=== PATIENT | male | born 1960 | race Caucasian/White ===

== ENCOUNTER 2016-09-11 10:51 | Inpatient (IN) ==
[2016-09-11] MEDS ORDERED: NITROGLYCERIN SL 0.4 MG TABLET SL PRN (11:04)
[2016-09-11] MEDS ORDERED: ENOXAPARIN 100 MG/ML SYRINGE SUBCUT STA (11:04)
[2016-09-11] MEDS ORDERED: ASPIRIN 325 MG TABLET PO STA (11:04)
[2016-09-11] MEDS ORDERED: ENOXAPARIN 60 MG/0.6 ML SYRINGE ONE (11:07)
[2016-09-11] MEDS ORDERED: ASPIRIN 325 MG TABLET ONE (11:07)
--- NOTE | 2016-09-11 11:35 | XRay Report ---
XR chest 1V portable Indication: Chest pain Comparison: None Technique: Single frontal view of the chest. Findings: Heart size within normal limits. Mild patchy opacification within the upper/lateral right lung suspicious for early consolidative process such as pneumonia. Visualized osseous and surrounding soft tissue structures demonstrate no acute abnormality. IMPRESSION: Mild patchy opacification within the upper/lateral right lung suspicious for early consolidative process such as pneumonia. PROCEDURE INTERPRETED AT [facility] DEPARTMENT OF RADIOLOGY Final Report Signed by: Dr Oswald Jaeger
[2016-09-11] MEDS ORDERED: NITROGLYCERIN 2% OINT 1 INCH/GM PACK TOP ONE (11:37)
[2016-09-11 11:43] LABS: Basophils # 0.1 10*3/uL (0.0-0.2); Basophils % 0.8 % (0.0-0.8); Eosinophils # 0.2 10*3/uL (0.0-0.87); Eosinophils % 2.2 % (0.00-10.9); Hematocrit 45.2 VOL% (42.0-52.0); Hemoglobin 15.7 GM/DL (14.0-18.0); Immature Granulocytes % 0.3 %; Immature Granulocytes Absolute 0.03 #; Lymphocytes # 1.9 10*3/uL (1.4-4.0); Lymphocytes % 20.5 % (21.2-54.2); Mean Corpuscular HGB Conc 34.7 GM/DL (32-36); Mean Corpuscular Hemoglobin 31 PG (27-34); Mean Corpuscular Volume 88.6 FL (87-102); Monocytes # 0.6 10*3/uL (0.11-0.8); Monocytes % 6.4 % (1.7-12.7); Neutrophils # 6.5 10*3/uL (1.4-7.4); Neutrophils % 69.8 % (38.7-73.9); Platelet Count 329 T/CUMM (130-400); Red Cell Distribution Width 12.9 % (9.3-17.3); White Blood Count 9.3 T/CUMM (4-12)
[2016-09-11] MEDS ORDERED: NITROGLYCERIN 2% OINT 1 INCH/GM PACK TOP STA (11:53)
[2016-09-11] MEDS ORDERED: MAGNESIUM SULF RIDER 4 GM in PREMIX 1 EACH IV PRN (11:55)
[2016-09-11] MEDS ORDERED: ZALEPLON 5 MG CAPSULE PO PRN (11:55)
[2016-09-11] MEDS ORDERED: MAGNESIUM SULF RIDER 2 GM in PREMIX 1 EACH IV PRN ×2 (11:55→12:00)
[2016-09-11] MEDS ORDERED: MORPHINE 2 MG/1 ML SYRINGE IV PRN (11:55)
[2016-09-11] MEDS ORDERED: ACETAMINOPHEN 325 MG TABLET PO PRN (11:55)
[2016-09-11] MEDS ORDERED: DOCUSATE SODIUM 100 MG CAPSULE PO PRN (11:55)
[2016-09-11] MEDS ORDERED: ONDANSETRON 4 MG/2 ML VIAL IV PRN (11:55)
[2016-09-11] MEDS ORDERED: DIAZEPAM 5 MG TABLET PO ONE (12:00)
[2016-09-11] MEDS ORDERED: POTASSIUM CHLORIDE RIDER 10 MEQ in PREMIX 1 EACH IV PRN (12:00)
[2016-09-11] MEDS ORDERED: diphenhydrAMINE CAP 25 MG CAPSULE PO ONE (12:00)
[2016-09-11] MEDS ORDERED: SODIUM CHLORIDE 0.45% 1,000 ML IV SCH (12:00)
[2016-09-11] MEDS ORDERED: LIDOCAINE 1%/EPI INJ 20 ML VIAL ONE (12:06)
[2016-09-11 12:13] LABS: Albumin 4.1 G/DL (3.4-5.0); Bilirubin,Total 0.6 MG/DL (0.2-1.0); Calcium 9.4 MG/DL (8.5-10.1); Magnesium 2.3 MG/DL (1.8-2.4); Osmolality,Calculated 282.3 MOS/KG (273-304); Potassium 4.3 MMOL/L (3.5-5.1); Total Protein 7.2 G/DL (6.4-8.3)
[2016-09-11] MEDS ORDERED: MIDAZOLAM 2 MG/2 ML VIAL ONE (12:18)
[2016-09-11] MEDS ORDERED: fentaNYL 100 MCG/2 ML VIAL ONE (12:19)
--- NOTE | 2016-09-11 12:21 | Cardiology History & Physical ---
Assessment and Plan - Time spent with patient Time spent with patient: Greater than 30 minutes (1) Unstable angina Status: Acute Assessment and plan: SEE PLAN OF CARE LISTED BELOW Current Visit: Yes (2) Hypotension Status: Acute Assessment and plan: SEE PLAN OF CARE LISTED BELOW Current Visit: Yes (3) CAP (community acquired pneumonia) Status: Acute Assessment and plan: SEE PLAN OF CARE LISTED BELOW Current Visit: Yes (4) Tobacco abuse Status: Chronic Assessment and plan: SEE PLAN OF CARE LISTED BELOW Current Visit: Yes History of Present Illness Chief complaint: Chest pain, left shoulder pain, jaw pain, hypotension History of present illness: 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 WALTERS PATIENT IS BEING SEEN IN THE ER Mr. Haider, 56WM, has never been followed by cardiology. Risk factors include: Heavy tobaccoism. Patient arrived to the emergency department at [facility] this morning after experiencing unrelenting left-sided chest pain which radiated to the left jaw and down the left arm. It is associated with diaphoresis, shortness of breath. He rates the discomfort as a 7 on a scale of 1-10, chest pain is currently a 5. It is not reproducible with movement, palpation or deep breath. Although the discomfort was previously occurring primarily with exertion, it is now occurring with exertion and at rest. He can identify no alleviating factors. Chest discomfort is described as squeezing sensation and a grabbing sensation. The discomfort has been occurring for the past 4-6 weeks. Initially, it was occurring with exertion, relieved with rest. He was having this several times a week. This morning, as he awakened and got out of bed, he began to experience this discomfort without relief. On arrival to the emergency department, he was hypotensive with a systolic blood pressure noted to be 70s. He was diaphoretic and continued to have chest pain. He was given a fluid bolus and systolic blood pressure improved to 100. EKG revealed no STEMI but possible hyperacute T waves. He has been given aspirin 325 mg and Lovenox, therapeutic dose. Blood pressure will not allow for introduction of beta-blockade and nitroglycerin paste has been held at this time. Cardiac biomarkers, labs have not yet returned. No obvious aneurysmal or dissecting symptoms are noted. Carotid, radial, femoral and pedal pulses 2-3+ bilaterally. No abdominal masses, or bruits noted. Of note, patient's chest x-ray does reveal probable pneumonia. Patient has no prior history of anemia, renal insufficiency or allergies. I have discussed this patient's condition with Dr. Walters. Dr. Walters will evaluate patient and make a decision regarding catheterization at this time. He is being prepped for heart cath, has not eaten since last evening. ASSESSMENT/PLAN: 1. UNSTABLE ANGINA - See above 2. HYPOTENSION - See above 3. POSSIBLE CAP - Will treat accordingly 4. TOBACCOISM - We discussed the merits of tobacco cessation briefly during ER but will further address prior to discharge. Home Medications Medication Instructions Recorded Confirmed Type No Known Home Medications [No 09/11/16 09/11/16 History Known Home Medications] Allergies Allergy/AdvReac Type Severity Reaction Status Date / Time No Known Allergies Allergy Verified 09/11/16 10:53 Review of systems: REVIEW OF SYSTEMS: See HPI - Constitutional Constitutional: Present: Fatigue. Absent: syncope, anorexia, night sweats - EENT Eyes: Absent: blurry vision, loss of vision, diplopia Ears: Absent: decreased hearing, ear pain, ear discharge - Cardiovascular Cardiovascular: Present: chest pain with exertion, chest pain at rest, dyspnea on exertion. Denies edema, palpitations. Absent: chest pain with deep breath, claudication - Respiratory Respiratory: Present: FITZPATRICK, denies cough. Absent: wheezing, hemoptysis, change in phlegm color - Gastrointestinal Gastrointestinal: Denies: constipation. Absent: abdominal pain, hematemesis, hematochezia, melena, change in bowel habits, nausea - Genitourinary Genitourinary: Absent: difficulty urinating, dysuria, urinary hesitancy, flank pain - Musculoskeletal Musculoskeletal: Present: back pain Absent: joint swelling, muscle cramps, muscle weakness - Neurological Neurological: Present: normal gait without frequent falls. Absent: dizziness, hemiparesis - Psychiatric Psychiatric: Absent: anxiety, depression, difficulty concentrating - Endocrine Endocrine: Absent: cold intolerance, heat intolerance, polyuria, polyphagia, polydipsia - Hematologic/Lymphatic Hematologic/Lymphatic: Present: easy bruising. Absent: easy bleeding, easy bruisability -Integumentary Integumentary: Absent: lesions, rashes, skin breakdown Medical,Surgical,& Family Hx - Medical History Cardio: No history of: Aneurysm, CAD, Hypertension, RI, Cardiovascular Problems Neurology: No history of: Cerebrovascular Accident, Seizures, TIA Endocrine: No history of: Diabetes Mellitus (IDDM), Diabetes Mellitus (NIDDM), Dyslipidemia Respiratory: No history of: Obstructive Sleep Apnea, Pulmonary Embolism, Lung Cancer Gastrointestinal: No history of: Gastrointestinal Bleed, Liver Problems, Gastrointestinal Cancer, GI Problems Musculoskeletal: History of: Back/Neck Problems Hematology: No history of: Anemia, Bleeding Problems - Surgical History Orthopedic Surgeries: Surgical HX of;: Spinal Surgery (fusion lumbar) - Social History Smoking Status: Current every day smoker Have you smoked in the last 12 months: Yes Time spent discussing smoking cessation with patient: 3 to 10 minutes Frequency of Alcohol Use: None Type of Drug Use: None Marital Status: Single Lives With:: Alone Functional capacity: independent ambulation Cardiology Physical Exam - Constitutional Vitals: Vital Signs Temp Pulse Resp BP Pulse Ox 96.4 F L 89 17 100/46 100 09/11/16 10:58 09/11/16 11:25 09/11/16 11:25 09/11/16 11:25 09/11/16 11:25 Intake and Output 09/10/16 09/11/16 09/11/16 23:59 07:59 15:59 Other: Weight 62.142 kg Patient Weight 09/11/16 23:59 Weight 62.142 kg Exam: General: [Thin male, slightly diaphoretic, cooperative and pleasant. ] HEENT: [PERRL, normocephalic, atraumatic. Mucous membranes moist. No jaundice noted. Conjunctiva moist and clear, sclerae anicteric. Poor dentition noted] Neck: No JVD/HJR, no thyromegaly or lymphadenopathy noted. No carotid bruit appreciated. 2 + carotid pulses noted bilaterally Cardiac: [Regular rate and rhythm.] [No obvious murmur rub or gallop.] Lungs: [Clear to auscultation without accessory muscle use to assist the respiratory pattern.] Oxygen in use via nasal cannula Abdomen: Soft, bowel sounds normoactive. Nontender and nondistended. No abdominal bruit or thrill noted. No masses noted. Musculoskeletal: No fluid collection. No decreased range of motion is noted. Extremities: No clubbing, cyanosis noted. [ No edema noted.] Radial, femoral and pedal pulses 2+ bilaterally. Capillary refill less than 3 seconds. Skin: No unusual lesions or rashes. No skin breakdown appreciated. Neuro: Awake, alert and oriented 3. Moves all extremities well without hemiparesis or paralysis. No essential tremor is appreciated. Result/EKG - Labs CBC & BMP: 09/11/16 11:26 09/11/16 11:26 Lab Results: I have reviewed the past 24 hour labs Labs: Laboratory Results - last 24 hr 09/11/16 11:26 WBC 9.3 RBC 5.10 Hgb 15.7 Hct 45.2 MCV 88.6 MCH 31 MCHC 34.7 RDW 12.9 Plt Count 329 MPV 9.0 L Neut % (Auto) 69.8 Lymph % (Auto) 20.5 L Garland % (Auto) 6.4 Eos % (Auto) 2.2 Baso % (Auto) 0.8 Neut # (Auto) 6.5 Lymph # (Auto) 1.9 Garland # (Auto) 0.6 Eos # (Auto) 0.2 Baso # (Auto) 0.1 Immature Gran % 0.3 Nucleated RBC % 0.0 Immature Gran # 0.03 Nucleated RBCs # 0.00 - Diagnostic Findings Procedure: Chest x-ray: report reviewed by me (Possible pneumonia noted) - EKG EKG results: interpreted by me EKG shows: sinus rhythm Quality Measures - VTE Contraindication to Pharmacological VTE Prophylaxis: Already on Theraputic Agent , No Prophylaxis Needed
[2016-09-11] MEDS ORDERED: ENOXAPARIN 30 MG/0.3 ML SYRINGE ONE (12:34)
[2016-09-11] MEDS ORDERED: HYDROmorphone 2 MG/1 ML VIAL IV ONE (13:05)
[2016-09-11] MEDS ORDERED: HYDROmorphone 2 MG/1 ML VIAL ONE (13:07)
--- NOTE | 2016-09-11 13:18 | Cardiac Catheterization ---
Date of Procedure:: 09/11/16 Pre-op Diagnosis: Patient with chest pain hypotension earlier EKG is equivocal he is for diagnostic evaluation intervention if indicated Post-op diagnosis: same Procedure: 56-year-old man with a history of substernal discomfort suspicious for angina and equivocal EKG changes for diagnostic evaluation intervention if indicated Procedures performed: Left heart catheterization Coronary arteriography Left ventriculography Patient had a femoral sheath angiography Mynx closure femoral arteriotomy site After obtaining informed consent the patient was brought to the catheterization lab where the [right] groin was prepped and draped in the usual sterile manner. After intravenous sedation and local anesthesia a needle stick was made to the right femoral artery and a [6 Swedish sheath] was positioned without difficulty. A left heart catheterization was undertaken using first a Michelle left diagnostic catheter. The catheter was advanced under fluoroscopy over a guidewire and positioned with its tip in the ostium of the left main coronary artery. Multiple angiograms were obtained of the left coronary artery in multiple views. After adequate angiogram to left coronary obtain this catheter was withdrawn and an AMRM right coronary catheter was advanced over a guidewire under fluoroscopic control where angiography of the right coronary artery was undertaken in multiple views. After adequate angiograms of the right coronary artery were obtained this catheter was withdrawn. A pigtail ventriculographic catheter was advanced over a guidewire under fluoroscopic control to the ascending aorta where it was advanced across the aortic valve and intraventricular hemodynamics were measured. A ventriculogram was obtained in the CYR projection and afterward a pullback was obtained from the ventricle to the aorta under hemodynamic monitoring and removed. At this point the patient underwent right femoral sheath angiography which demonstrated anatomy appropriate for Mynx closure. Patient was uncooperative and developed a golf ball sized hematoma. Minx was placed and this was performed without difficulty. Patient continued bleeding. He underwent hemostasis using direct pressure for 15 minutes. Groin was stable at end procedure. The patient then was transferred back to the [facility]ra having suffered no significant immediate complications. Hemodynamics: Please see the accompanying data sheet Coronary arteriography: Left coronary artery: The left main coronary artery is well-developed and free of significant obstructing lesions. The circumflex coronary is a large nondominant vessel that possesses no significant lesions through its course. The branches of the circumflex likewise are free of significant obstructing lesions. There are several areas of 30-40% stenosis noted. No significant stenosis can be identified. The left anterior descending coronary artery is a large vessel that extends around the apex of the ventricle. The LAD possesses no significant lesions throughout its course. There are several areas of 30-40% stenosis but no significant flow-limiting disease can be noted. Right coronary artery: Right coronary is a large dominant vessel possesses an area of probably 40-50% stenosis in its midportion. The PDA has a mid segment lesion probably measuring 90% stenotic. The distal vessel was very small. There is SUDHA III flow down this vessel. Left ventriculography: After injection of contrast left ventricle is noted normal size with normal contractility. Mitral and aortic structures are noted to be free of significant abnormality by ventriculography. Right femoral sheath angiography: After injection of contrast in the right femoral arterial sheath it is noted be of normal caliber and enters above the bifurcation. The distal iliac, common femoral and bifurcation appear to be free of significant obstructing lesions based on this limited angiographic study. Conclusions: Moderate disease of the mid right and mid circumflex with significant disease of his mid to distal PDA which I do not think is causing any acute event. Normal left ventricular size and function. Normal end-diastolic pressures at rest Mynx closure right femoral arteriotomy site Discussion recommendations the patient presents with chest discomfort. EKG is equivocal. I do not think that this is a acute coronary syndrome. He does have mid PDA stenosis which could be treated percutaneously electively at some later point. Because of the patient's significant bleeding and hematoma I am going to stop and pull sheaths and hold pressure. He will be watched closely in the CCU setting. Surgeon / Physician: Shabbir Walters Estimated blood loss: minimal Specimens: none sent Condition: stable - Medications / Follow-up
[2016-09-11 13:30] LABS: Risk Ratio 2.48; VLDL CHOLESTEROL 19.8 MG/DL
[2016-09-11] MEDS: ALBUTEROL 1.25 MG/3 ML NEB RESP TX SCH ×2 (14:40→19:30)
--- NOTE | 2016-09-11 14:55 | Event Note ---
Patient underwent cardiac catheterization for chest pain, shortness of breath. No significant coronary disease noted. Chest x-ray does reveal a pneumonia. Dr. Walters would like pulmonary to be consulted. I will go ahead and start Levaquin and pulmonary toilet.
[2016-09-11] MEDS ORDERED: LEVOFLOXACIN INJ 500 MG in PREMIX 1 EACH IV SCH (15:00)
--- NOTE | 2016-09-11 15:42 | Pulmonology Consult Note ---
Assessment and Plan (1) COPD (chronic obstructive pulmonary disease) Status: Acute Assessment and plan: The patient likely has some COPD although he does not complain of a lot of symptoms. Will check PFTs tomorrow. Current Visit: Yes (2) Unstable angina Status: Acute Assessment and plan: The patient had a cardiac catheterization and has moderate coronary artery disease. He will continue with medical treatment. Current Visit: Yes (3) CAP (community acquired pneumonia) Status: Acute Assessment and plan: I doubt this area in question is pneumonia. Will have to follow this area. Current Visit: Yes (4) Tobacco abuse Status: Chronic Assessment and plan: He certainly needs to quit smoking. Current Visit: Yes History of Present Illness Chief complaint: Chest pain History of present illness: Mr. Haider is a 56 year old white male has a long history of cigarette smoking came in with chest pain. He states for the past month or so he has had some intermittent chest pain and occasional shortness of breath. Earlier he had severe pain and came in and had a cardiac catheterization. He has mild coronary artery disease. He says he had a similar event 10 or12 years ago but did not agree to a cardiac catheterization. He says he never really takes any medicine. He denies having any trouble with his breathing before. He says he is not coughing or producing any sputum. He has never used any inhalers. He is really not having any other symptoms now. Home Medications Medication Instructions Recorded Confirmed Type No Known Home Medications [No 09/11/16 09/11/16 History Known Home Medications] Allergies Allergy/AdvReac Type Severity Reaction Status Date / Time No Known Allergies Allergy Verified 09/11/16 10:53 - Constitutional Constitutional: Present: fatigue. Absent: chills, fever(s), night sweats, weight loss - EENT Eyes: Absent: blurry vision, loss of vision Ears: Absent: decreased hearing Nose, mouth and throat: Absent: dysphagia, hoarseness, sinus pressure - Cardiovascular Cardiovascular: Present: chest pain with activity, dyspnea on exertion. Absent : edema, orthopnea, palpitations, PND - Respiratory Respiratory: Present: dyspnea on exertion. Absent: cough, hemoptysis, wheezing , change in phlegm color - Gastrointestinal Gastrointestinal: Absent: abdominal pain, change in bowel habits, dysphagia, nausea, vomiting - Genitourinary Genitourinary: Absent: difficulty urinating, dysuria, hematuria, urinary frequency - Musculoskeletal Musculoskeletal: Present: back pain. Absent: arthralgias, muscle weakness - Neurological Neurological: Absent: abnormal speech, focal weakness, frequent falls, paresthesias - Psychiatric Psychiatric: Absent: anxiety, depression Exam (Pulmon) H&P - Constitutional Vitals: Period Temp Pulse Resp BP Sys/Jaffe Pulse Ox Last 24 Hr 96.4 F-97.8 F 82-89 17-24 69-134/46-83 100-100 General appearance: normal weight (He is a thin young middle-aged man that looks comfortable at rest.), no acute distress - Head Head exam: Present: normal inspection, normocephalic - Eye Eye exam: Present: EOMI. Absent: scleral icterus Pupils: Present: MELANY - ENT ENT exam: Present: other (Poor dentition) - Neck Neck exam: Present: normal inspection. Absent: lymphadenopathy, thyromegaly - Respiratory Respiratory exam: Absent: clear to auscultation bilaterally, accessory muscle use, wheezes - Cardiovascular Cardiovascular exam: Present: regular rate and rhythm. Absent: gallop, JVD, systolic murmur - GI/Abdominal GI/Abdominal exam: Present: normal bowel sounds, soft. Absent: distended, organomegaly, tenderness - Extremities Exam Extremities exam: Absent: calf tenderness, edema - Neurological Exam Neurological exam: Present: alert, oriented X3, CN II-XII intact - Psychiatric Psychiatric exam: Present: normal affect - Skin Skin exam: Present: warm, dry Medical,Surgical,& Family Hx - Medical History Cardio: No history of: Aneurysm, CAD, Hypertension, [place], Cardiovascular Problems Neurology: No history of: Cerebrovascular Accident, Seizures, TIA Endocrine: No history of: Diabetes Mellitus (IDDM), Diabetes Mellitus (NIDDM), Dyslipidemia Respiratory: No history of: Obstructive Sleep Apnea, Pulmonary Embolism, Lung Cancer Gastrointestinal: No history of: Gastrointestinal Bleed, Liver Problems, Gastrointestinal Cancer, GI Problems Musculoskeletal: History of: Back/Neck Problems Hematology: No history of: Anemia, Bleeding Problems - Surgical History Orthopedic Surgeries: Surgical HX of;: Spinal Surgery (fusion lumbar) - Social History Smoking Status: Current every day smoker Frequency of Alcohol Use: None Type of Drug Use: None Results - Labs CBC & BMP: 09/11/16 11:26 09/11/16 11:26 - Diagnostic Findings Procedure: Chest x-ray: image reviewed by me, report reviewed by me (Chest x- ray suggests some COPD changes. There is a small area of consolidation in the right apex medially. Doubt this is pneumonia. We will try to compare to old films.) Quality Measures - VTE Contraindication to Pharmacological VTE Prophylaxis: Already on Theraputic Agent , No Prophylaxis Needed Specialty Discharge - Follow Up or Referrals
[2016-09-11 16:00] LABS: Troponin I Only < 0.015 NG/ML (0.00-0.045)
[2016-09-11 16:46] LABS: Basophils % 0.5 % (0.0-0.8); Eosinophils # 0.1 10*3/uL (0.0-0.87); Hematocrit 38.7 VOL% (42.0-52.0); Hemoglobin 13.2 GM/DL (14.0-18.0); Immature Granulocytes % 0.4 %; Immature Granulocytes Absolute 0.03 #; Lymphocytes # 2.1 10*3/uL (1.4-4.0); Lymphocytes % 27.4 % (21.2-54.2); Mean Corpuscular HGB Conc 34.1 GM/DL (32-36); Mean Corpuscular Hemoglobin 31 PG (27-34); Mean Corpuscular Volume 89.8 FL (87-102); Monocytes # 0.4 10*3/uL (0.11-0.8); Monocytes % 5.3 % (1.7-12.7); Neutrophils % 65.4 % (38.7-73.9); Platelet Count 277 T/CUMM (130-400); Red Blood Count 4.31 MC/CUMM (3.8-5.5); Red Cell Distribution Width 13.1 % (9.3-17.3); White Blood Count 7.7 T/CUMM (4-12)
--- NOTE | 2016-09-11 17:57 | Event Note ---
Post cath, patient is awake alert and oriented 3. He is right groin is stable. Originally, patient was having bleeding issues and hematoma immediately post cath but this seems to have resolved. Vital signs are stable.
[2016-09-11 20:31] LABS: Troponin I Only < 0.015 NG/ML (0.00-0.045)
[2016-09-11] MEDS: ATORVASTATIN 40 MG TABLET PO SCH (20:58)
[2016-09-11] MEDS: METOPROLOL TARTRATE 50 MG TABLET PO SCH (20:58)
[2016-09-12] MEDS: ALBUTEROL 1.25 MG/3 ML NEB RESP TX SCH ×7 (00:22→23:35)
--- NOTE | 2016-09-12 04:44 | EKG Report ---
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
--- NOTE | 2016-09-12 04:44 | EKG Report ---
Stationary ECG Study [facility] Test Date: 09/11/2016 2:38:17 PM Pat Name: ZULEYMA SPANGLER Department: Room: Gender: M Subassembly Supervisor: : 1960 Requested by: Jesse Quinn Order Number: [id number] Reading MD: PAKO ALEMAN Intervals [place] Rate: 61 P: 68 [place]: 140 QRS: 49 QRSD: 90 T: 65 QT: 433 QTc: 436 Interpretive Statements SINUS RHYTHM INTERPRETATION BASED ON A DEFAULT AGE OF 40 YEARS Electronically Signed On 09-11-16 17:11:38 CDT by PAKO ALEMAN [email or web address]
[2016-09-12 05:53] LABS: Basophils # 0.1 10*3/uL (0.0-0.2); Basophils % 0.7 % (0.0-0.8); Eosinophils # 0.3 10*3/uL (0.0-0.87); Eosinophils % 3.6 % (0.00-10.9); Hematocrit 38.5 VOL% (42.0-52.0); Immature Granulocytes % 0.4 %; Immature Granulocytes Absolute 0.03 #; Lymphocytes # 3.2 10*3/uL (1.4-4.0); Lymphocytes % 38.5 % (21.2-54.2); Mean Corpuscular HGB Conc 33.8 GM/DL (32-36); Mean Corpuscular Hemoglobin 31 PG (27-34); Mean Corpuscular Volume 90.8 FL (87-102); Mean Platelet Volume 8.7 FL (9.6-12.0); Monocytes # 0.6 10*3/uL (0.11-0.8); Neutrophils # 4.2 10*3/uL (1.4-7.4); Neutrophils % 49.8 % (38.7-73.9); Platelet Count 282 T/CUMM (130-400); Red Blood Count 4.24 MC/CUMM (3.8-5.5); Red Cell Distribution Width 13.2 % (9.3-17.3); White Blood Count 8.4 T/CUMM (4-12)
[2016-09-12 06:26] LABS: Calcium 8.7 MG/DL (8.5-10.1); Magnesium 2.1 MG/DL (1.8-2.4); Osmolality,Calculated 288.8 MOS/KG (273-304); Potassium 3.9 MMOL/L (3.5-5.1)
[2016-09-12 06:36] LABS: Alanine Aminotransferase 22 U/L (16-61); Albumin 2.9 G/DL (3.4-5.0); Alkaline Phosphatase 74 U/L (45-117); Aspartate Amino Transferase 18 U/L (0-37); Bilirubin,Total < 0.39 MG/DL (0.2-1.0); Blood Urea Nitrogen 20 MG/DL (7-18); Calcium 8.5 MG/DL (8.5-10.1); Glucose 110 MG/DL (74-106); Osmolality,Calculated 286.1 MOS/KG (273-304); Potassium 3.8 MMOL/L (3.5-5.1); Sodium 142 MMOL/L (136-145); Total Protein 5.4 G/DL (6.4-8.3); Troponin I Only < 0.015 NG/ML (0.00-0.045)
--- NOTE | 2016-09-12 07:27 | EKG Report ---
Stationary ECG Study 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
--- NOTE | 2016-09-12 08:20 | Pulmonology Progress Note ---
Pulmonary - PN: Subj Interval history: Patient is a 56-year-old white male that is a smoker and came in with chest pain. He had a cardiac catheterization yesterday and has moderate coronary artery disease. He is going to continue with medical management. There was a question of an infiltrate in his right apex. He is not having any increased cough or chest discomfort. He is not short of breath now. His chest x-ray today looks better and I do not see an infiltrate. He will get PFTs today. He certainly needs to quit smoking. Exam (Progress Note) - Constitutional Vitals: Period Temp Pulse Resp BP Sys/Jaffe Pulse Ox Last 24 Hr 96.4 F-98.2 F 58-89 12-24 69-134/46-85 94-100 Exam: General appearance: normal weight (He is a thin young middle-aged man that looks comfortable at rest. He is not short of breath.) - Head Head exam: Present: normal inspection, normocephalic - Eye Eye exam: Present: EOMI. Absent: scleral icterus Pupils: Present: MELANY - ENT ENT exam: Present: other (Poor dentition) - Neck Neck exam: Present: normal inspection. Absent: lymphadenopathy, thyromegaly - Respiratory Respiratory exam: The patient has good breath sounds bilaterally without any definite wheezing. - Cardiovascular Cardiovascular exam: Present: regular rate and rhythm. Absent: gallop, JVD, systolic murmur - GI/Abdominal GI/Abdominal exam: Present: normal bowel sounds, soft. Absent: distended, organomegaly, tenderness - Extremities Exam Extremities exam: Absent: calf tenderness, edema - Neurological Exam Neurological exam: Present: alert, oriented X3, CN II-XII intact - Psychiatric Psychiatric exam: Present: normal affect - Skin Skin exam: Present: warm, dry Results - Labs CBC & BMP: 09/12/16 05:41 09/12/16 05:41 - Diagnostic Findings Procedure: Chest x-ray: image reviewed by me, report reviewed by me (Chest x- ray suggest COPD changes but no definite infiltrate.) Assessment and Plan (1) COPD (chronic obstructive pulmonary disease) Status: Acute Assessment and plan: The patient likely has some COPD although he does not complain of a lot of symptoms. Will check PFTs. He probably needs a bronchodilator. He will probably go home later today. Current Visit: Yes (2) Unstable angina Status: Acute Assessment and plan: The patient had a cardiac catheterization and has moderate coronary artery disease. He will continue with medical treatment. Current Visit: Yes (3) CAP (community acquired pneumonia) Status: Acute Assessment and plan: I doubt this area in question is pneumonia. His chest x-ray looks unremarkable to me. Current Visit: Yes (4) Tobacco abuse Status: Chronic Assessment and plan: He certainly needs to quit smoking. Current Visit: Yes Specialty Discharge - Follow Up or Referrals
--- NOTE | 2016-09-12 09:34 | Discharge Summary ---
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 Haider, 56WM, had never been followed by cardiology. Risk factors include: Heavy tobaccoism (80 pack years). Patient arrived to the emergency department of [facility] September 11, 2016 after experiencing unrelenting left-sided chest pain concerning for angina. He underwent urgent left heart catheterization due to unrelenting pain. Heart catheterization, performed by Dr. Walters, revealed the following findings: Conclusions: Moderate disease of the mid right and mid circumflex with significant disease of his mid to distal PDA which I do not think is causing any acute event. Normal left ventricular size and function. Normal end-diastolic pressures at rest Mynx closure right femoral arteriotomy site Discussion recommendations: Patient presents with chest discomfort. EKG is equivocal. He does have mid PDA stenosis which could be treated percutaneously electively at some later point. Because of the patient's significant bleeding and hematoma I am going to stop and pull sheaths and hold pressure. He will be watched closely in the CCU setting. Patient was monitored closely in the CCU. He developed a right groin pseudoaneurysm postoperatively as it was difficult for him to remain still. He thrashed about for several hours. September 13, 2016, Dr. Menezes performed thrombin injection of the right groin pseudoaneurysm. Post procedure arterial duplex revealed successful thrombosis. He tolerated this procedure well without complication. Labs were stable overnight. He has been ambulating this morning without difficulty. Patient was treated with Levaquin for possible community- acquired pneumonia. He is anxious for discharge and he is being discharged home today in stable condition. He will be given a 1-2 week follow-up appoint with Dr. Walters. ASSESSMENT/PLAN: 1. CHEST PAIN - see above. 2. HYPOTENSION - resolved. BP usually runs low. Beta-blockade has now been incorporated. Tolerating without problems. 3. POSSIBLE CAP - Levaquin. 4. TOBACCOISM - We discussed the merits of tobacco cessation for greater than 10 minutes today. He tells me he will no longer use tobacco 5. SUSPECTED COPD - Dr. Rodney has ordered PFTs. 6. PSEUDOANEURYSM - now stable. DISCHARGE MEDICATIONS: Aspirin 81 mg orally daily Metoprolol tartrate 50mg orally twice daily Atorvastatin 80 mg orally each evening Levaquin 500 mg orally daily 2 days Protonix 40mg orally daily - Time spent with patient Time with patient DS: Greater than 30 minutes Time spent discussing smoking cessation with patient: more than 10 minutes Diagnosis - Discharge Diagnosis (1) Unstable angina Status: Resolved (2) Hypotension Status: Resolved (3) CAP (community acquired pneumonia) Status: Acute (4) Tobacco abuse Status: Chronic Specialty Discharge - Follow Up or Referrals Follow up with: Shabbir Walters MD [Physician] - 2 Weeks Discharge Plan - Discharge Data Disposition: Disch To Home/Self Care Condition at Discharge: Stable Discharge Diet: heart healthy Activity: other (Post cath expectations) Hygiene: other (Post cath expectations) Weight Bearing at Discharge: other (Post cath expectations) Driving: other (Post cath expectations) Contact your physician if you experience:: fever over 101, Difficulty voiding, Redness or swelling, Nausea/Vomiting, Shortness of breath, Bleeding, pain uncontrolled by pain medications - Discharge Medications New Atorvastatin [Lipitor] 80 mg PO BEDTIME #30 tablet Levofloxacin Tab [Levaquin Tab] 500 mg PO Q24H #5 tablet Metoprolol Tartrate Tab [Lopressor Tab] 50 mg PO BID #60 tablet Pantoprazole Tab [Protonix Tab] 40 mg PO DAILY #30 tablet Aspirin EC Tab 81 mg PO DAILY #30 tablet - Follow Up or Referral Follow Up: Shabbir Walters MD [Physician] - 2 Weeks - Forms/Instructions Instructions: Coronary Artery Disease (GEN), Left Heart Catheterization (DC), How to Stop Smoking (GEN), Heart Healthy Diet (GEN), Cigarette Smoking and Your Health (GEN) Additional Discharge Instructions: Please cancel appointment with Dr. Rodney. WIll not need at this time. Exam - Constitutional Vitals: Period Temp Pulse Resp BP Sys/Jaffe Pulse Ox Last 24 Hr 96.4 F-98.2 F 58-89 12-24 69-134/46-85 94-100 Exam: General: [Appears well with no apparent distress.] [Pleasant and cooperative. ] [Appears comfortable.] HEENT: [PERRL, normocephalic, atraumatic. Mucous membranes moist. No jaundice noted. Conjunctiva moist and clear, sclerae anicteric] Neck: No JVD/HJR, no thyromegaly or lymphadenopathy noted. No carotid bruit appreciated Cardiac: [Regular rate and rhythm.] [No murmur rub or gallop.] Lungs: [Clear to auscultation without accessory muscle use to assist the respiratory pattern.] Not requiring oxygen Abdomen: Soft, bowel sounds normoactive. Nontender and nondistended. No abdominal bruit or thrill noted. No masses noted. Musculoskeletal: No fluid collection. Decreased range of motion is noted. Extremities: Right groin with moderate amount of ecchymosis. No bruit. [ No edema noted.] Upper extremity pulses 2+. Lower extremity pulses 1+. Capillary refill less than 3 seconds. Skin: No unusual lesions or rashes other than bruising of the right groin. No skin breakdown appreciated. Neuro: Awake, alert and oriented 3. Moves all extremities well without hemiparesis or paralysis. No essential tremor is appreciated. Discharge Results Procedures and tests throughout hospitalization: Pending Orders 09/11/16 16:33 Blood Culture Routine 09/12/16 04:00 XR chest 2V IN AM Labs on day of discharge: Labs from last 24 hours 09/12/16 09/12/16 09/12/16 05:41 05:41 05:41 WBC 8.4 RBC 4.24 Hgb 13.0 L Hct 38.5 L MCV 90.8 MCH 31 MCHC 33.8 RDW 13.2 Plt Count 282 MPV 8.7 L Neut % (Auto) 49.8 Lymph % (Auto) 38.5 [place] % (Auto) 7.0 Eos % (Auto) 3.6 Baso % (Auto) 0.7 Neut # (Auto) 4.2 Lymph # (Auto) 3.2 [place] # (Auto) 0.6 Eos # (Auto) 0.3 Baso # (Auto) 0.1 Immature Gran % 0.4 Nucleated RBC % 0.0 Immature Gran # 0.03 Nucleated RBCs # 0.00 Sodium 144 142 Potassium 3.9 3.8 Chloride 109 H 108 H Carbon Dioxide 27 27 Anion Gap 11.9 10.8 BUN 19 H 20 H Creatinine 1.10 1.00 GFR Calculation 77 86 BUN/Creatinine Ratio 17.00 20.00 Glucose 110 H 110 H Calculated Osmolality 288.8 286.1 Calcium 8.7 8.5 Magnesium 2.1 Total Bilirubin < 0.39 AST 18 ALT 22 Alkaline Phosphatase 74 Total Creatine Kinase 50 D CK-MB (CK-2) < 1.0 Troponin I < 0.015 Total Protein 5.4 L Albumin 2.9 L Globulin 2.5 Albumin/Globulin Ratio 1.1 Triglycerides Cholesterol LDL Cholesterol VLDL Cholesterol HDL Cholesterol Heart Disease Risk Ratio TSH 3rd Generation 09/11/16 09/11/16 09/11/16 19:41 16:33 16:33 WBC 7.7 RBC 4.31 Hgb 13.2 L D Hct 38.7 L MCV 89.8 MCH 31 MCHC 34.1 RDW 13.1 Plt Count 277 MPV 9.0 L Neut % (Auto) 65.4 Lymph % (Auto) 27.4 [place] % (Auto) 5.3 Eos % (Auto) 1.0 Baso % (Auto) 0.5 Neut # (Auto) 5.0 Lymph # (Auto) 2.1 [place] # (Auto) 0.4 Eos # (Auto) 0.1 Baso # (Auto) 0.0 Immature Gran % 0.4 Nucleated RBC % 0.0 Immature Gran # 0.03 Nucleated RBCs # 0.00 Sodium Potassium Chloride Carbon Dioxide Anion Gap BUN Creatinine GFR Calculation BUN/Creatinine Ratio Glucose Calculated Osmolality Calcium Magnesium Total Bilirubin AST ALT Alkaline Phosphatase Total Creatine Kinase 79 CK-MB (CK-2) < 1.0 Troponin I < 0.015 < 0.015 Total Protein Albumin Globulin Albumin/Globulin Ratio Triglycerides Cholesterol LDL Cholesterol VLDL Cholesterol HDL Cholesterol Heart Disease Risk Ratio TSH 3rd Generation 09/11/16 09/11/16 09/11/16 14:59 11:26 11:26 WBC RBC Hgb Hct MCV MCH MCHC RDW Plt Count MPV Neut % (Auto) Lymph % (Auto) [place] % (Auto) Eos % (Auto) Baso % (Auto) Neut # (Auto) Lymph # (Auto) [place] # (Auto) Eos # (Auto) Baso # (Auto) Immature Gran % Nucleated RBC % Immature Gran # Nucleated RBCs # Sodium Potassium Chloride Carbon Dioxide Anion Gap BUN Creatinine GFR Calculation BUN/Creatinine Ratio Glucose Calculated Osmolality Calcium Magnesium Total Bilirubin AST ALT Alkaline Phosphatase Total Creatine Kinase 80 CK-MB (CK-2) 1.4 Troponin I < 0.015 < 0.015 Total Protein Albumin Globulin Albumin/Globulin Ratio Triglycerides Cholesterol LDL Cholesterol VLDL Cholesterol HDL Cholesterol Heart Disease Risk Ratio TSH 3rd Generation 1.120 09/11/16 09/11/16 09/11/16 11:26 11:26 11:20 WBC 9.3 RBC 5.10 Hgb 15.7 Hct 45.2 MCV 88.6 MCH 31 MCHC 34.7 RDW 12.9 Plt Count 329 MPV 9.0 L Neut % (Auto) 69.8 Lymph % (Auto) 20.5 L [place] % (Auto) 6.4 Eos % (Auto) 2.2 Baso % (Auto) 0.8 Neut # (Auto) 6.5 Lymph # (Auto) 1.9 [place] # (Auto) 0.6 Eos # (Auto) 0.2 Baso # (Auto) 0.1 Immature Gran % 0.3 Nucleated RBC % 0.0 Immature Gran # 0.03 Nucleated RBCs # 0.00 Sodium 141 Potassium 4.3 Chloride 106 Carbon Dioxide 26 Anion Gap 13.3 BUN 17 Creatinine 0.90 GFR Calculation 96 BUN/Creatinine Ratio 18.00 Glucose 100 Calculated Osmolality 282.3 Calcium 9.4 Magnesium 2.3 Total Bilirubin 0.60 AST 29 ALT 29 Alkaline Phosphatase 99 Total Creatine Kinase CK-MB (CK-2) Troponin I Total Protein 7.2 Albumin 4.1 Globulin 3.1 Albumin/Globulin Ratio 1.3 Triglycerides 99 Cholesterol 171 LDL Cholesterol 92.0 VLDL Cholesterol 19.8 HDL Cholesterol 69 H Heart Disease Risk Ratio 2.48 TSH 3rd Generation - Imaging and Cardiology Cardiology Procedure: report reviewed by or Procedure: Chest x-ray: report reviewed by or DS: Provider Date of admission: September 11, 2016 Attending physician on admission: Dr. 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 Expected date of discharge: 09/14/16
[2016-09-12] MEDS: PANTOPRAZOLE 40 MG TABLET PO SCH (10:00)
[2016-09-12] MEDS: LEVOFLOXACIN 500 MG TABLET PO SCH (10:00)
[2016-09-12] MEDS: ASPIRIN EC 81 MG TABLET PO SCH (10:00)
[2016-09-12] MEDS: METOPROLOL TARTRATE 50 MG TABLET PO SCH ×2 (10:00→20:53)
--- NOTE | 2016-09-12 11:39 | Ultrasound Report ---
US arterial duplex LE RT Clinical Information: hematoma S/P heart cath Comparison: None available Technique: Targeted arterial evaluation of the right groin vessels with color Doppler, grayscale and spectral analysis was performed. Findings: There is a hypoechoic collection overlying the right common femoral artery measuring up to 4.5 x 1.8 x 1.7 cm with internal color Doppler blood flow noted on multiple images. A tiny punctate neck with active bleeding was also visualized. Doppler blood flow and spectral analysis within the right common and superficial femoral arteries otherwise appears preserved and within normal limits. Incidental imaging of the right common femoral vein suggests a nonocclusive DVT. Spectral analysis within the common femoral vein was not obtained. Mid superficial femoral vein however appears patent with normal compressibility. Impression: Pseudoaneurysm overlying the right common femoral artery measuring up to 4.5 cm. Active blood flow via a tiny neck is visualized with color Doppler. Possible small nonocclusive thrombus within the adjacent common femoral vein which otherwise demonstrates preserved color Doppler blood flow. Critical findings discussed with Dr. Walters via telephone at 1130 on the day of the examination. PROCEDURE INTERPRETED AT [facility] DEPARTMENT OF RADIOLOGY Final Report Signed by: Brady Menezes
--- NOTE | 2016-09-12 11:40 | XRay Report ---
Exam: XR chest 2V Indication: Shortness of breath, history of recent catheterization, right common femoral artery pseudoaneurysm Comparison study: 09/11/2016 Findings: The heart, mediastinum and bony structures are stable from prior. Lungs are mildly hyperexpanded with central perihilar interstitial prominence suggesting underlying scarring changes, which appear unchanged. Questioned opacities within the right lung are less prominent on the current examination and may have been artifactual or atelectasis. There is no focal consolidation, pneumothorax or pleural effusion identified. Impression: No acute cardiopulmonary process. Suggestion of underlying interstitial scarring changes. PROCEDURE INTERPRETED AT [facility] DEPARTMENT OF RADIOLOGY Final Report Signed by: Brady Menezes
[2016-09-12 13:02] LABS: Basophils # 0.1 10*3/uL (0.0-0.2); Basophils % 0.8 % (0.0-0.8); Eosinophils # 0.3 10*3/uL (0.0-0.87); Eosinophils % 3.1 % (0.00-10.9); Hematocrit 41.6 VOL% (42.0-52.0); Hemoglobin 14.1 GM/DL (14.0-18.0); Immature Granulocytes % 0.3 %; Immature Granulocytes Absolute 0.03 #; Lymphocytes # 3.4 10*3/uL (1.4-4.0); Lymphocytes % 38.8 % (21.2-54.2); Mean Corpuscular HGB Conc 33.9 GM/DL (32-36); Mean Corpuscular Hemoglobin 31 PG (27-34); Mean Corpuscular Volume 91.4 FL (87-102); Mean Platelet Volume 8.9 FL (9.6-12.0); Monocytes # 0.6 10*3/uL (0.11-0.8); Monocytes % 6.6 % (1.7-12.7); Neutrophils # 4.3 10*3/uL (1.4-7.4); Neutrophils % 50.4 % (38.7-73.9); Platelet Count 293 T/CUMM (130-400); Red Blood Count 4.55 MC/CUMM (3.8-5.5); Red Cell Distribution Width 13.2 % (9.3-17.3); White Blood Count 8.6 T/CUMM (4-12)
--- NOTE | 2016-09-12 13:54 | Cardiology Progress Note ---
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 Haider, 56WM, had never been followed by cardiology. Risk factors include: heavy tobaccoism (80 pack years). Patient arrived to the emergency department of [facility] September 11, 2016 after experiencing unrelenting left- sided chest pain concerning for angina. He underwent urgent left heart catheterization due to unrelenting pain. Heart catheterization, performed by Dr. Walters, revealed the following findings: Conclusions: Moderate disease of the mid right and mid circumflex with significant disease of his mid to distal PDA which I do not think is causing any acute event. Normal left ventricular size and function. Normal end-diastolic pressures at rest Mynx closure right femoral arteriotomy site Discussion recommendations: Patient presents with chest discomfort. EKG is equivocal. He does have mid PDA stenosis which could be treated percutaneously electively at some later point. Because of the patient's significant bleeding and hematoma I am going to stop and pull sheaths and hold pressure. He will be watched closely in the CCU setting. SEPTEMBER 12, 2016: Patient was monitored closely in the CCU overnight. Right groin reveals moderate bruising, firmness, soft bruit. Ultrasound will be ordered to evaluate. Labs are stable. He is feeling better this morning. No chest pain, heaviness or tightness. Breathing is good. Slept relatively well. Dr. Rodney has seen patient and he is being treated for CAP. Hopefully, if US groing stable, will discharge home this afternoon. Will further discuss with Dr. Walters and await additional recommendations. ASSESSMENT/PLAN: 1. CHEST PAIN - see above. 2. HYPOTENSION - resolved. BP usually runs low. Beta-blockade has now been incorporated. Tolerating without problems. 3. POSSIBLE CAP - Levaquin. 4. TOBACCOISM - We discussed the merits of tobacco cessation for greater than 10 minutes today. He tells me he will no longer use tobacco 5. SUSPECTED COPD - Dr. Rodney has ordered PFTs. Exam (Progress Note) - Constitutional Vitals: Period Temp Pulse Resp BP Sys/Jaffe Pulse Ox Last 24 Hr 97.1 F-98.9 F 58-85 10-24 85-143/48-93 94-100 Exam: General: [Appears well with no apparent distress.] [Pleasant and cooperative. ] [Appears comfortable.] HEENT: [PERRL, normocephalic, atraumatic. Mucous membranes moist. No jaundice noted. Conjunctiva moist and clear, sclerae anicteric] Neck: No JVD/HJR, no thyromegaly or lymphadenopathy noted. No carotid bruit appreciated Cardiac: [Regular rate and rhythm.] [No murmur rub or gallop.] Lungs: [Clear to auscultation without accessory muscle use to assist the respiratory pattern.] Not requiring oxygen Abdomen: Soft, bowel sounds normoactive. Nontender and nondistended. No abdominal bruit or thrill noted. No masses noted. Musculoskeletal: No fluid collection. Decreased range of motion is noted. Extremities: Right groin with hematoma, exquisitely tender to touch, moderate erythema, soft bruit. [ No edema noted.] Upper extremity pulses 2+. Lower extremity pulses 2+. Capillary refill less than 3 seconds. Skin: No unusual lesions or rashes other than bruising of the right groin. No skin breakdown appreciated. Neuro: Awake, alert and oriented 3. Moves all extremities well without hemiparesis or paralysis. No essential tremor is appreciated. Result/EKG - Labs CBC & BMP: 09/12/16 12:49 09/12/16 05:41 Lab Results: I have reviewed the past 24 hour labs Labs: Laboratory Results - last 24 hr 09/11/16 09/11/16 09/11/16 14:59 16:33 16:33 WBC 7.7 RBC 4.31 Hgb 13.2 L D Hct 38.7 L MCV 89.8 MCH 31 MCHC 34.1 RDW 13.1 Plt Count 277 MPV 9.0 L Neut % (Auto) 65.4 Lymph % (Auto) 27.4 Martin % (Auto) 5.3 Eos % (Auto) 1.0 Baso % (Auto) 0.5 Neut # (Auto) 5.0 Lymph # (Auto) 2.1 Martin # (Auto) 0.4 Eos # (Auto) 0.1 Baso # (Auto) 0.0 Immature Gran % 0.4 Nucleated RBC % 0.0 Immature Gran # 0.03 Nucleated RBCs # 0.00 Sodium Potassium Chloride Carbon Dioxide Anion Gap BUN Creatinine GFR Calculation BUN/Creatinine Ratio Glucose Calculated Osmolality Calcium Magnesium Total Bilirubin AST ALT Alkaline Phosphatase Total Creatine Kinase 80 CK-MB (CK-2) 1.4 Troponin I < 0.015 < 0.015 Total Protein Albumin Globulin Albumin/Globulin Ratio 09/11/16 09/12/16 09/12/16 19:41 05:41 05:41 WBC 8.4 RBC 4.24 Hgb 13.0 L Hct 38.5 L MCV 90.8 MCH 31 MCHC 33.8 RDW 13.2 Plt Count 282 MPV 8.7 L Neut % (Auto) 49.8 Lymph % (Auto) 38.5 Martin % (Auto) 7.0 Eos % (Auto) 3.6 Baso % (Auto) 0.7 Neut # (Auto) 4.2 Lymph # (Auto) 3.2 Martin # (Auto) 0.6 Eos # (Auto) 0.3 Baso # (Auto) 0.1 Immature Gran % 0.4 Nucleated RBC % 0.0 Immature Gran # 0.03 Nucleated RBCs # 0.00 Sodium 142 Potassium 3.8 Chloride 108 H Carbon Dioxide 27 Anion Gap 10.8 BUN 20 H Creatinine 1.00 GFR Calculation 86 BUN/Creatinine Ratio 20.00 Glucose 110 H Calculated Osmolality 286.1 Calcium 8.5 Magnesium Total Bilirubin < 0.39 AST 18 ALT 22 Alkaline Phosphatase 74 Total Creatine Kinase 79 50 D CK-MB (CK-2) < 1.0 < 1.0 Troponin I < 0.015 < 0.015 Total Protein 5.4 L Albumin 2.9 L Globulin 2.5 Albumin/Globulin Ratio 1.1 09/12/16 09/12/16 05:41 12:49 WBC 8.6 RBC 4.55 Hgb 14.1 Hct 41.6 L MCV 91.4 MCH 31 MCHC 33.9 RDW 13.2 Plt Count 293 MPV 8.9 L Neut % (Auto) 50.4 Lymph % (Auto) 38.8 Martin % (Auto) 6.6 Eos % (Auto) 3.1 Baso % (Auto) 0.8 Neut # (Auto) 4.3 Lymph # (Auto) 3.4 Martin # (Auto) 0.6 Eos # (Auto) 0.3 Baso # (Auto) 0.1 Immature Gran % 0.3 Nucleated RBC % 0.0 Immature Gran # 0.03 Nucleated RBCs # 0.00 Sodium 144 Potassium 3.9 Chloride 109 H Carbon Dioxide 27 Anion Gap 11.9 BUN 19 H Creatinine 1.10 GFR Calculation 77 BUN/Creatinine Ratio 17.00 Glucose 110 H Calculated Osmolality 288.8 Calcium 8.7 Magnesium 2.1 Total Bilirubin AST ALT Alkaline Phosphatase Total Creatine Kinase CK-MB (CK-2) Troponin I Total Protein Albumin Globulin Albumin/Globulin Ratio - Diagnostic Findings Procedure: Chest x-ray: report reviewed by me - EKG EKG results: interpreted by me EKG shows: sinus rhythm Quality Measures - VTE Contraindication to Pharmacological VTE Prophylaxis: Already on Theraputic Agent , No Prophylaxis Needed Specialty Discharge - Follow Up or Referrals Follow up with: Eric Rodney MD [Physician] - 2 Weeks (CXR morning of appointment RE: pneumonia) Shabbir Walters MD [Physician] - 2 Weeks
--- NOTE | 2016-09-12 13:57 | Event Note ---
Ultrasound reveals the following: Pseudoaneurysm overlying the right common femoral artery measuring up to 4.5cm. Active blood flow via a tiny neck is visualized with color Doppler. Possible small nonocclusive thrombus within the adjacent common femoral vein which otherwise demonstrates preserved color Doppler blood flow. CBC ordered stat. Will consult Dr. Menezes, interventional radiologist, for evaluation of possible decompression and/or thrombin injection. Will require treatment for DVT as well. Suspect patient's chest pain may have been related to her PTE. Will further evaluate during this hospital stay.
[2016-09-12] MEDS ORDERED: HYDROmorphone 2 MG/1 ML VIAL IV PRN (14:49)
[2016-09-12] MEDS: HYDROmorphone 2 MG/1 ML VIAL IV PRN ×3 (14:51→22:40)
[2016-09-12 14:55] LABS: Apearance,Urine CLEAR (Clear); Bilirubin,Urine Negative (Negative); Blood, Urine Large mg/dL (Negative); Glucose,Urine (UA) Negative (Negative); Ketones,Urine Negative (Negative); Nitrite,Urine Negative (Negative); Protein,Urine Negative; RBC,Urine 262 /HPF (0-4); Urine Color Yellow (Yellow); Urine Specific Gravity 1.014 (1.001-1.035); Urine Urobilinogen < 2.0 EU/DL (0.2-1.0); WBC,Urine 3 /HPF (0-6)
[2016-09-12] MEDS: SODIUM CHLORIDE 0.45% 1,000 ML IV SCH (15:00)
--- NOTE | 2016-09-12 15:17 | ECHO Report ---
Haresh Haider Exam Date: 09/11/2016 14:42 Referring Physician: Technologist: Katalina Dennis Age: 56 Ht (in): 68 Wt (lb): 137 Gender: M Exam Location: [facility] Echo Indications: unstable angina, hypotension, pneumonia, tobacco abuse BP: 100 / 46 HR: 89 Rhythm: Sinus Technical Quality: Fair IMPRESSIONS Normal left ventricular cavity size. Mild concentric left ventricular hypertrophy. Left ventricular ejection fraction is estimated at 55-60 %. Normal right ventricular size and systolic function. Normal right atrial size. Normal left atrial size. Mild mitral valve sclerosis. Trace mitral valve regurgitation. Mild aortic valve sclerosis without stenosis or regurgitation. Morphologically normal tricuspid valve. Morphologically normal pulmonic valve. No pericardial effusion. Normal size aortic root and proximal ascending aorta. MEASUREMENTS (Male / Female) Normal Values 2D ECHO LV Diastolic Diameter PLAX 4.2 cm 4.2 - 5.9 / 3.9 - 5.3 cm LV Systolic Diameter PLAX 2.3 cm LV Fractional Shortening PLAX 44.8 % IVS Diastolic Thickness 1.0 cm 0.6 - 1.0 / 0.6 - 0.9 cm LVPW Diastolic Thickness 0.9 cm 0.6 - 1.0 / 0.6 - 0.9 cm RV Internal Dim ED PLAX 2.1 cm Aortic Root Diameter 2.5 cm LA Systolic Diameter LX 3.5 cm 3.0 - 4.0 / 2.7 - 3.8 cm FINDINGS Left Ventricle Normal left ventricular cavity size. Mild concentric left ventricular hypertrophy.left ventricular ejection fraction is estimated at 55-60 %. Right Ventricle Normal right ventricular size and systolic function. Right Atrium Normal right atrial size. Left Atrium Normal left atrial size. Mitral Valve Mild mitral valve sclerosis. Trace mitral valve regurgitation. Aortic Valve Mild aortic valve sclerosis without stenosis or regurgitation. Tricuspid Valve Morphologically normal tricuspid valve. Pulmonic Valve Morphologically normal pulmonic valve. Pericardium No pericardial effusion. Aorta Normal size aortic root and proximal ascending aorta. Shabbir Walters MD (Electronically Signed) Final Date: 12 September 2016 15:16
--- NOTE | 2016-09-12 15:55 | Ultrasound Report ---
History his right leg pain Bilateral lower extremity venous Doppler performed with grayscale, spectral Doppler, and color flow analysis performed and interpreted. No evidence of echogenic, noncompressible thrombus seen in either common femoral, superficial femoral, popliteal, or saphenous veins Impression: No evidence of DVT seen in either lower extremity. PROCEDURE INTERPRETED AT [facility] DEPARTMENT OF RADIOLOGY Final Report Signed by: Dr. Sara Michelle
[2016-09-12 19:27] LABS: Basophils # 0.1 10*3/uL (0.0-0.2); Basophils % 0.7 % (0.0-0.8); Eosinophils # 0.3 10*3/uL (0.0-0.87); Eosinophils % 3.4 % (0.00-10.9); Hematocrit 40.6 VOL% (42.0-52.0); Hemoglobin 13.7 GM/DL (14.0-18.0); Immature Granulocytes % 0.1 %; Immature Granulocytes Absolute 0.01 #; Lymphocytes # 3.4 10*3/uL (1.4-4.0); Lymphocytes % 45.8 % (21.2-54.2); Mean Corpuscular HGB Conc 33.7 GM/DL (32-36); Mean Corpuscular Hemoglobin 31 PG (27-34); Mean Corpuscular Volume 90.4 FL (87-102); Mean Platelet Volume 8.8 FL (9.6-12.0); Monocytes # 0.6 10*3/uL (0.11-0.8); Monocytes % 8.2 % (1.7-12.7); Neutrophils # 3.1 10*3/uL (1.4-7.4); Neutrophils % 41.8 % (38.7-73.9); Platelet Count 271 T/CUMM (130-400); Red Blood Count 4.49 MC/CUMM (3.8-5.5); Red Cell Distribution Width 13.2 % (9.3-17.3); White Blood Count 7.4 T/CUMM (4-12)
[2016-09-12] MEDS: ATORVASTATIN 40 MG TABLET PO SCH (20:53)
[2016-09-13] MEDS: HYDROmorphone 2 MG/1 ML VIAL IV PRN ×4 (02:30→20:51)
[2016-09-13] MEDS: ALBUTEROL 1.25 MG/3 ML NEB RESP TX SCH ×6 (04:05→23:47)
[2016-09-13 05:16] LABS: Basophils # 0.1 10*3/uL (0.0-0.2); Basophils % 0.8 % (0.0-0.8); Eosinophils # 0.3 10*3/uL (0.0-0.87); Hematocrit 38.2 VOL% (42.0-52.0); Hemoglobin 12.9 GM/DL (14.0-18.0); Immature Granulocytes % 0.3 %; Immature Granulocytes Absolute 0.02 #; Lymphocytes # 3.6 10*3/uL (1.4-4.0); Lymphocytes % 45.5 % (21.2-54.2); Mean Corpuscular HGB Conc 33.8 GM/DL (32-36); Mean Corpuscular Hemoglobin 31 PG (27-34); Mean Corpuscular Volume 90.7 FL (87-102); Mean Platelet Volume 9.4 FL (9.6-12.0); Monocytes # 0.6 10*3/uL (0.11-0.8); Monocytes % 7.9 % (1.7-12.7); Neutrophils # 3.3 10*3/uL (1.4-7.4); Neutrophils % 41.5 % (38.7-73.9); Platelet Count 283 T/CUMM (130-400); Red Blood Count 4.21 MC/CUMM (3.8-5.5); Red Cell Distribution Width 13.2 % (9.3-17.3)
[2016-09-13 05:49] LABS: Calcium 8.3 MG/DL (8.5-10.1); Potassium 4.1 MMOL/L (3.5-5.1)
--- NOTE | 2016-09-13 07:05 | EKG Report ---
Stationary ECG Study [facility] Test Date: 09/13/2016 7:06:59 AM Pat Name: ZULEYMA SPANGLER Department: Room: 119 Gender: M [employer] Director: IRENE : 1960 Requested by: Shabbir Walters Order Number: [id number] Reading MD: HIMA WING Intervals [place] Rate: 64 P: 80 MT: 145 QRS: 68 QRSD: 91 T: 72 QT: 382 QTc: 391 Interpretive Statements SINUS RHYTHM Electronically Signed On 09-15-16 15:10:58 CDT by HIMA WING [email or web address]
[2016-09-13] MEDS: METOPROLOL TARTRATE 50 MG TABLET PO SCH ×2 (08:11→21:46)
[2016-09-13] MEDS: PANTOPRAZOLE 40 MG TABLET PO SCH (08:11)
[2016-09-13] MEDS: ASPIRIN EC 81 MG TABLET PO SCH (08:11)
--- NOTE | 2016-09-13 08:15 | Pulmonology Progress Note ---
Pulmonary - PN: Subj Interval history: Patient is a 56-year-old white male that is a smoker and came in with chest pain. He had a cardiac catheterization yesterday and has moderate coronary artery disease. He is going to continue with medical management. There was a question of an infiltrate in his right apex. He is not having any increased cough or chest discomfort. He is not short of breath now. His chest x-ray today looks better and I do not see an infiltrate. His PFTs showed fairly normal airflow and I feel quit smoking cigarettes, he will probably not need any bronchodilators. Now he does have a hematoma in his right groin and thigh is requiring further treatment. Today he says he feels better without any chest pain or shortness of breath Exam (Progress Note) - Constitutional Vitals: Period Temp Pulse Resp BP Sys/Jaffe Pulse Ox Last 24 Hr 97 F-98.9 F 56-82 10-24 103-145/65-93 90-100 Exam: General appearance: normal weight (He is a thin young middle-aged man that looks comfortable at rest. He is not short of breath. He looks like he is breathing comfortably now.) - Head Head exam: Present: normal inspection, normocephalic - Eye Eye exam: Present: EOMI. Absent: scleral icterus Pupils: Present: MELANY - ENT ENT exam: Present: other (Poor dentition) - Neck Neck exam: Present: normal inspection. Absent: lymphadenopathy, thyromegaly - Respiratory Respiratory exam: The patient has good breath sounds bilaterally without any definite wheezing. He does seem to be moving air fairly well. - Cardiovascular Cardiovascular exam: Present: regular rate and rhythm. Absent: gallop, JVD, systolic murmur - GI/Abdominal GI/Abdominal exam: Present: normal bowel sounds, soft. Absent: distended, organomegaly, tenderness - Extremities Exam Extremities exam: Absent: calf tenderness, edema, he does have a large bruise over his right thigh. - Neurological Exam Neurological exam: Present: alert, oriented X3, CN II-XII intact - Psychiatric Psychiatric exam: Present: normal affect - Skin Skin exam: Present: warm, dry Results - Labs CBC & BMP: 09/13/16 04:21 09/13/16 04:21 Assessment and Plan (1) COPD (chronic obstructive pulmonary disease) Status: Acute Assessment and plan: The patient likely has some COPD although he does not complain of a lot of symptoms. His PFTs show minimal restriction in airflow obstruction. If he will quit smoking he probably will not need any bronchodilator therapy. Current Visit: Yes (2) Unstable angina Status: Resolved Assessment and plan: The patient had a cardiac catheterization and has moderate coronary artery disease. He will continue with medical treatment. Current Visit: Yes (3) CAP (community acquired pneumonia) Status: Acute Assessment and plan: His chest x-ray does not suggest any pneumonia now. Current Visit: Yes (4) Tobacco abuse Status: Chronic Assessment and plan: He certainly needs to quit smoking. He says he is not going to smoke anymore. Current Visit: Yes (5) Pseudoaneurysm Status: Acute Assessment and plan: He apparently developed a pseudoaneurysm of the right common femoral artery and is being evaluated by interventional radiology. Current Visit: Yes Specialty Discharge - Follow Up or Referrals Follow up with: Eric Rodney MD [Physician] - 2 Weeks (CXR morning of appointment RE: pneumonia) Shabbir Walters MD [Physician] - 2 Weeks
[2016-09-13] MEDS: SODIUM CHLORIDE 0.45% 1,000 ML IV SCH (09:07)
[2016-09-13] MEDS: LEVOFLOXACIN 500 MG TABLET PO SCH (09:07)
--- NOTE | 2016-09-13 11:12 | Cardiology Progress Note ---
Assessment and Plan - Time spent with patient Time spent with patient: Greater than 30 minutes (1) Unstable angina Status: Resolved Assessment and plan: SEE PLAN OF CARE LISTED BELOW Current Visit: Yes (2) Hypotension Status: Resolved Assessment and plan: SEE PLAN OF CARE LISTED BELOW Current Visit: Yes (3) CAP (community acquired pneumonia) Status: Acute Assessment and plan: SEE PLAN OF CARE LISTED BELOW Current Visit: Yes (4) Tobacco abuse Status: Chronic Assessment and plan: SEE PLAN OF CARE LISTED BELOW Current Visit: Yes Cardiology - PN: Subj Interval history: FIRM ADMINISTRATOR: (NEW) DR. WALTERS SUMMARY: Mr. Haider, 56WM, had never been followed by cardiology. Risk factors include: heavy tobaccoism (80 pack years). Patient arrived to the emergency department of [facility] September 11, 2016 after experiencing unrelenting left- sided chest pain concerning for angina. He underwent urgent left heart catheterization due to unrelenting pain. Heart catheterization, performed by Dr. Walters, revealed the following findings: Conclusions: Moderate disease of the mid right and mid circumflex with significant disease of his mid to distal PDA which I do not think is causing any acute event. Normal left ventricular size and function. Normal end-diastolic pressures at rest Mynx closure right femoral arteriotomy site Discussion recommendations: Patient presents with chest discomfort. EKG is equivocal. He does have mid PDA stenosis which could be treated percutaneously electively at some later point. Because of the patient's significant bleeding and hematoma I am going to stop and pull sheaths and hold pressure. He will be watched closely in the CCU setting. SEPTEMBER 12, 2016: Patient was monitored closely in the CCU overnight. Right groin reveals moderate bruising, firmness, soft bruit. Ultrasound will be ordered to evaluate. Labs are stable. He is feeling better this morning. No chest pain, heaviness or tightness. Breathing is good. Slept relatively well. Dr. Rodney has seen patient and he is being treated for CAP. Hopefully, if US groing stable, will discharge home this afternoon. Will further discuss with Dr. Walters and await additional recommendations. SEPTEMBER 13, 2016: Patient developed right femoral artery pseudoaneurysm post cath. Noted on the arterial ultrasound was a possible femoral deep vein thrombosis. He therefore underwent dedicated venous ultrasound which ruled out DVT. This morning, labs are stable however he continues to have significant femoral bruit. Results of repeat arterial ultrasound are pending. Dr. Walters has seen patient today believes he may need intervention, pending results of ultrasound. Otherwise, patient is doing well. He denies chest pain, heaviness or tightness. Chest x-ray has revealed no infiltrate this morning. I will stop his IV Levaquin and transition to Levaquin orally for 3 more days. Hopefully, patient will be discharged home over the weekend. ASSESSMENT/PLAN: 1. CHEST PAIN - see above. 2. HYPOTENSION - resolved. BP usually runs low. Beta-blockade has now been incorporated. Tolerating without problems. 3. POSSIBLE CAP - repeat chest x-ray reveals no infiltrate. He does not have a fever, cough. He is currently on IV Levaquin will transition to oral Levaquin at this point for 3 more days. 4. TOBACCOISM - the merits of tobacco cessation was reinforced again today. Exam (Progress Note) - Constitutional Vitals: Period Temp Pulse Resp BP Sys/Jaffe Pulse Ox Last 24 Hr 97 F-98.9 F 56-70 10-21 103-145/65-91 90-100 Exam: General: [Appears well with no apparent distress.] [Pleasant and cooperative. ] [Appears comfortable.] HEENT: [PERRL, normocephalic, atraumatic. Mucous membranes moist. No jaundice noted. Conjunctiva moist and clear, sclerae anicteric] Neck: No JVD/HJR, no thyromegaly or lymphadenopathy noted. No carotid bruit appreciated Cardiac: [Regular rate and rhythm.] [No murmur rub or gallop.] Lungs: [Clear to auscultation without accessory muscle use to assist the respiratory pattern.] Not requiring oxygen Abdomen: Soft, bowel sounds normoactive. Nontender and nondistended. No abdominal bruit or thrill noted. No masses noted. Musculoskeletal: No fluid collection. Decreased range of motion is noted. Extremities: Right groin with hematoma, exquisitely tender to touch, moderate erythema, bruit. [ No edema noted.] Upper extremity pulses 2+. Left lower extremity pulse 2+, right lower extremity pulse one plus. Capillary refill less than 3 seconds. Skin: No unusual lesions or rashes other than bruising of the right groin. No skin breakdown appreciated. Neuro: Awake, alert and oriented 3. Moves all extremities well without hemiparesis or paralysis. No essential tremor is appreciated. Result/EKG - Labs CBC & BMP: 09/13/16 04:21 09/13/16 04:21 Lab Results: I have reviewed the past 24 hour labs Labs: Laboratory Results - last 24 hr 09/12/16 09/12/16 09/12/16 12:49 14:44 19:21 WBC 8.6 7.4 RBC 4.55 4.49 Hgb 14.1 13.7 L Hct 41.6 L 40.6 L MCV 91.4 90.4 MCH 31 31 MCHC 33.9 33.7 RDW 13.2 13.2 Plt Count 293 271 MPV 8.9 L 8.8 L Neut % (Auto) 50.4 41.8 Lymph % (Auto) 38.8 45.8 [place] % (Auto) 6.6 8.2 Eos % (Auto) 3.1 3.4 Baso % (Auto) 0.8 0.7 Neut # (Auto) 4.3 3.1 Lymph # (Auto) 3.4 3.4 [place] # (Auto) 0.6 0.6 Eos # (Auto) 0.3 0.3 Baso # (Auto) 0.1 0.1 Immature Gran % 0.3 0.1 Nucleated RBC % 0.0 0.0 Immature Gran # 0.03 0.01 Nucleated RBCs # 0.00 0.00 Sodium Potassium Chloride Carbon Dioxide Anion Gap BUN Creatinine GFR Calculation BUN/Creatinine Ratio Glucose Calculated Osmolality Calcium Magnesium Urine Color Yellow Urine Appearance Clear Urine pH 6.0 Ur Specific [place] 1.014 Urine Protein Negative Urine Glucose (UA) Negative Urine Ketones Negative Urine Blood Large Urine Nitrate Negative Urine Bilirubin Negative Urine Urobilinogen < 2.0 H Urine Leukocytes Negative Urine RBC 262 Urine WBC 3 Ur Culture Indicated? Not indicated 09/13/16 09/13/16 04:21 04:21 WBC 8.0 RBC 4.21 Hgb 12.9 L Hct 38.2 L MCV 90.7 MCH 31 MCHC 33.8 RDW 13.2 Plt Count 283 MPV 9.4 L Neut % (Auto) 41.5 Lymph % (Auto) 45.5 [place] % (Auto) 7.9 Eos % (Auto) 4.0 Baso % (Auto) 0.8 Neut # (Auto) 3.3 Lymph # (Auto) 3.6 [place] # (Auto) 0.6 Eos # (Auto) 0.3 Baso # (Auto) 0.1 Immature Gran % 0.3 Nucleated RBC % 0.0 Immature Gran # 0.02 Nucleated RBCs # 0.00 Sodium 143 Potassium 4.1 Chloride 107 Carbon Dioxide 29 Anion Gap 11.1 BUN 17 Creatinine 0.80 GFR Calculation 103 BUN/Creatinine Ratio 21.00 H Glucose 121 H Calculated Osmolality 287.0 Calcium 8.3 L Magnesium 2.0 Urine Color Urine Appearance Urine pH Ur Specific [place] Urine Protein Urine Glucose (UA) Urine Ketones Urine Blood Urine Nitrate Urine Bilirubin Urine Urobilinogen Urine Leukocytes Urine RBC Urine WBC Ur Culture Indicated? - Diagnostic Findings Procedure: Ultrasound: report reviewed by me (Arterial, venous ultrasounds) - EKG EKG results: interpreted by me EKG shows: sinus rhythm Quality Measures - VTE Contraindication to Pharmacological VTE Prophylaxis: Already on Theraputic Agent , No Prophylaxis Needed Specialty Discharge - Follow Up or Referrals Follow up with: Eric Rodney MD [Physician] - 2 Weeks (CXR morning of appointment RE: pneumonia) Shabbir Walters MD [Physician] - 2 Weeks
--- NOTE | 2016-09-13 11:15 | Ultrasound Report ---
US arterial duplex LE RT Clinical Information: Reassess pseudoaneurysm in am Comparison: Ultrasound 09/12/2016 Findings: Again, the pseudoaneurysm is noted overlying the right superficial femoral artery. This again measures 4.8 x 2 x 3 cm which is slightly increased in size. Color Doppler again demonstrates a small neck with active bleeding into the pseudoaneurysm. Repeat evaluation of the right common femoral vein no longer demonstrates the questionable filling defect seen previously which may represent a prominent venous valve. Impression: Slight increased size of the superficial femoral artery pseudoaneurysm with maintained patency of the neck with color Doppler blood flow signal noted in the pseudoaneurysm. Consider thrombin injection. PROCEDURE INTERPRETED AT [facility] DEPARTMENT OF RADIOLOGY Final Report Signed by: Brady Menezes
[2016-09-13] MEDS ORDERED: THROMBIN TOPICAL (RECOMBINANT) 5,000 UNIT VIAL TOP ONE (14:26)
--- NOTE | 2016-09-13 17:31 | Post Interventional Procedure ---
Pre-op diagnosis: right groin pseudoaneurysm Post-op diagnosis: same Procedure: u/s guided thrombin injection into the pseudoaneurysm Contrast: none Flouroscopy: none Radiologist: Brady Menezes Anesthesia: local Specimens: none sent Estimated blood loss: none Complications: none Condition: stable Description/Findings: Near complete thrombosis of the right groin pseudoaneurysm status post thrombin injection. Follow-up ultrasound at 2 and 24 hours will be obtained to assess for recanalization versus complete thrombosis. Additionally, documentation of a patent right dorsalis pedis pulse should be performed q6 hours until the pseudoaneurysm is thrombosed. Assessment and Plan - Time spent with patient Time spent with patient: Less than 30 minutes
--- NOTE | 2016-09-13 17:36 | Ultrasound Report ---
US pseudo aneurysm repair RT Clinical Information: 56-year-old male status post heart catheterization with development of a pseudoaneurysm in the right groin. Conservative measures failed to thrombosed pseudoaneurysm. Physician[s]: Dr. Mneezes Total number of images for the procedure: 198 Procedure: The patient was advised of the benefits, risks, and alternatives of the procedure and informed consent was obtained. A time out was performed with verification of the patient's name, MRN, site of procedure, and type of procedure to be performed. The patient was positioned in the supine position on the angiographic table. The site was prepped and draped in the usual sterile fashion. Local anesthesia only was used for the procedure. The right groin was prepped and draped in typical sterile fashion. 1% lidocaine was used for local anesthesia at the anticipated puncture site. Using ultrasound guidance, a 22-gauge needle was advanced into the inferior aspect of the pseudoaneurysm. Approximately 400 units of thrombin was administered into the pseudoaneurysm sac. Immediate thrombosis was visualized at real-time. Continued scanning with color Doppler evaluation demonstrates minimal residual blood flow at the aneurysm neck. However, continued determine ejection could result in distal embolization. Therefore, no additional intervention was performed. The patient tolerated the procedure well and remained in stable condition. Right dorsalis pedis pulse was 2+ at the conclusion of the procedure. EBL: < 5 mL. Complications: None. Conclusion: Near complete thrombosis of the right groin pseudoaneurysm status post thrombin injection. Follow-up ultrasound will be obtained to assess for recanalization versus complete thrombosis. PROCEDURE INTERPRETED AT [facility] DEPARTMENT OF RADIOLOGY Final Report Signed by: Brady Menezes
--- NOTE | 2016-09-13 18:58 | Ultrasound Report ---
History is status post pseudoaneurysm thrombin injection 09/13/2016 at 6:40 PM There has been interval thrombosis of the right groin pseudoaneurysm. No flow is identified within the pseudoaneurysm. The adjacent right common femoral artery is patent Impression: Successful thrombosis of right groin pseudoaneurysm PROCEDURE INTERPRETED AT [facility] DEPARTMENT OF RADIOLOGY Final Report Signed by: Dr. Sara Michelle
[2016-09-13] MEDS: ATORVASTATIN 40 MG TABLET PO SCH (20:51)
[2016-09-14 02:48] LABS: Basophils # 0.1 10*3/uL (0.0-0.2); Basophils % 0.9 % (0.0-0.8); Eosinophils # 0.3 10*3/uL (0.0-0.87); Eosinophils % 3.8 % (0.00-10.9); Hematocrit 38.1 VOL% (42.0-52.0); Hemoglobin 13.1 GM/DL (14.0-18.0); Immature Granulocytes % 0.2 %; Immature Granulocytes Absolute 0.02 #; Lymphocytes % 44.4 % (21.2-54.2); Mean Corpuscular HGB Conc 34.4 GM/DL (32-36); Mean Corpuscular Hemoglobin 31 PG (27-34); Mean Corpuscular Volume 90.3 FL (87-102); Mean Platelet Volume 9.2 FL (9.6-12.0); Monocytes # 0.7 10*3/uL (0.11-0.8); Monocytes % 7.7 % (1.7-12.7); Neutrophils # 3.9 10*3/uL (1.4-7.4); Platelet Count 276 T/CUMM (130-400); Red Blood Count 4.22 MC/CUMM (3.8-5.5); Red Cell Distribution Width 12.9 % (9.3-17.3)
[2016-09-14 03:13] LABS: Calcium 8.8 MG/DL (8.5-10.1); Magnesium 1.9 MG/DL (1.8-2.4); Potassium 4.3 MMOL/L (3.5-5.1)
[2016-09-14] MEDS: ALBUTEROL 1.25 MG/3 ML NEB RESP TX SCH ×3 (03:16→10:02)
[2016-09-14] MEDS: SODIUM CHLORIDE 0.45% 1,000 ML IV SCH (05:53)
--- NOTE | 2016-09-14 07:46 | EKG Report ---
Stationary ECG Study [facility] Test Date: 09/14/2016 7:47:11 AM Pat Name: ZULEYMA SPANGLER Department: Room: 119 Gender: M Brush Finisher: : 1960 Requested by: Shabbir Walters Order Number: [id number] Reading MD: HIMA WING Intervals [place] Rate: 69 P: 80 TX: 138 QRS: 73 QRSD: 90 T: 78 QT: 373 QTc: 391 Interpretive Statements SINUS RHYTHM Electronically Signed On 09-15-16 15:33:17 CDT by HIMA WING [email or web address]
[2016-09-14 07:54] VITALS: BP 154/83
--- NOTE | 2016-09-14 08:27 | Pulmonology Progress Note ---
Pulmonary - PN: Subj Interval history: This 56-year-old man had a cardiac catheterization and is being treated medically for his heart disease. He had a hematoma in his right femoral artery and this has been taken care of. Plans are for him to go home today. Patient been advised to stop smoking. Stable from pulmonary standpoint. Exam (Progress Note) - Constitutional Vitals: Period Temp Pulse Resp BP Sys/Jaffe Pulse Ox Last 24 Hr 96.9 F-97.6 F 55-81 13-21 100-154/58-94 92-100 Exam: Patient's alert. Vital signs normal. Oxygen saturation upper 90s on room air. Pupils react to light. Throat is clear. Neck supple no bruits. Chest is clear equal breath sounds. Heart normal rate and rhythm no murmurs. Abdomen soft nontender no masses. Extremities no clubbing cyanosis or edema. Bandage over right inguinal area. Results - Labs CBC & BMP: 09/14/16 02:15 09/14/16 02:15 Lab Results: I have reviewed the past 24 hour labs Assessment and Plan (1) Tobacco abuse Status: Chronic Assessment and plan: Patient advised to stay off cigarettes long-term. Current Visit: Yes (2) COPD (chronic obstructive pulmonary disease) Status: Acute Assessment and plan: Follow-up with Dr. Rodney as needed. Current Visit: Yes (3) Pseudoaneurysm Status: Acute Assessment and plan: This is been addressed by interventional radiology. Current Visit: Yes Specialty Discharge - Follow Up or Referrals Follow up with: Eric Rodney MD [Physician] - 2 Weeks (CXR morning of appointment RE: pneumonia) Shabbir Walters MD [Physician] - 2 Weeks
--- NOTE | 2016-09-14 09:31 | Ultrasound Report ---
History is follow-up thrombin injection of the right groin pseudoaneurysm Comparison 09/13/2016 No flow is identified within the previously thrombosed right groin pseudoaneurysm. The adjacent common femoral artery is patent on the right Impression: Successful thrombosis of the right groin pseudoaneurysm PROCEDURE INTERPRETED AT [facility] DEPARTMENT OF RADIOLOGY Final Report Signed by: Dr. Sara Michelle
[2016-09-14] MEDS: METOPROLOL TARTRATE 50 MG TABLET PO SCH (10:00)
[2016-09-14] MEDS: ASPIRIN EC 81 MG TABLET PO SCH (10:00)
[2016-09-14] MEDS: LEVOFLOXACIN 500 MG TABLET PO SCH (10:00)
[2016-09-14] MEDS: PANTOPRAZOLE 40 MG TABLET PO SCH (10:00)
--- NOTE | 2016-09-18 07:58 | Physician Query Form ---
CLICK EDIT DOCUMENT TO SELECT QUERY ANSWER --> OK --> SIGN Daniella Hodgson RN Clinical Grocery Sacker W) [phone] (f) [phone] [email or web address] PROVIDERS: Make your selection(s) from the choices in EACH section by typing an "x" and enter comments in the comment section. Please use your independent medical judgment in providing your response. This request does not imply that any particular answer is desired or expected. CLINICAL INDICATORS: (Providers should not edit this section) Based on documentation of "possible community acquired pneumonia - repeat chest x-ray reveals no infiltrate. He does not have a fever, cough. He is currently on IV Levaquin will transition to oral Levaquin at this point for 3 more days". Diagnosis: Pneumonia Please clarify the following: ( ) The above diagnosis was monitored, evaluated, and/or treated and is a confirmed diagnosis ( ) The above diagnosis was ruled out ( ) The above diagnosis is still a likely, suspected, probable diagnosis ( ) Other, please specify: (x ) Clinically unable to determine COMMENTS: PLEASE ALSO DOCUMENT RESPONSE IN PROGRESS NOTES AND/OR DISCHARGE SUMMARY Use of terms such as suspected, likely, or probable (associated with a specific diagnosis that is being evaluated, monitored, or treated as if it exists) are acceptable and can be restated in the discharge summary if not ruled out. MTDD
--- NOTE | 2016-09-20 08:28 | Physician Query Form ---
CLICK EDIT DOCUMENT TO SELECT QUERY ANSWER --> OK --> SIGN Daniella Hodgson RN Clinical Fire Prevention Forester W) [phone] (f) [phone] [email or web address] PROVIDERS: Make your selection(s) from the choices in EACH section by typing an "x" and enter comments in the comment section. Please use your independent medical judgment in providing your response. This request does not imply that any particular answer is desired or expected. CLINICAL INDICATORS: (Providers should not edit this section) Based on documentation of "possible community acquired pneumonia - repeat chest x-ray reveals no infiltrate. He does not have a fever, cough. He is currently on IV Levaquin will transition to oral Levaquin at this point for 3 more days". Diagnosis: pneumonia Please clarify the following: ( ) The above diagnosis was monitored, evaluated, and/or treated and is a confirmed diagnosis ( x) The above diagnosis was ruled out ( ) Other, please specify: ( ) Clinically unable to determine COMMENTS: PLEASE ALSO DOCUMENT RESPONSE IN PROGRESS NOTES AND/OR DISCHARGE SUMMARY Use of terms such as suspected, likely, or probable (associated with a specific diagnosis that is being evaluated, monitored, or treated as if it exists) are acceptable and can be restated in the discharge summary if not ruled out. MTDD
--- NOTE | 2016-11-28 14:58 | Emergency Department Note ---
Karl Horvath Gwan, am scribing for, and in the presence of, Jesse Henriquez MD 11:20. Martinez Horvath Phillip K, MD, personally performed the services described in this documentation, ascribed by Sobia Barajas in my presence, and it is both accurate and complete [id number] . Arrival - Arrival Chief Complaint: Chest Pain Stated Complaint: CHEST PAIN, LEFT ARM HURTING ED Nursing Triage Note: Pt c/o Chest pain, left arm pain, SOB, nausea, dizziness , and broke out into a sweat this am. Mode of Arrival: Ambulatory Limitations: No Limitations Source: Patient, Old Records Reviewed, RN Notes Reviewed Time Seen by Provider: 09/11/16 11:04 - History of Present Illness HPI Narrative: Patient is a 56 y/o white male who presents to the ED with a c/o chest pain with an onset this morning. Patient stated that at onset he became extremely diaphoretic, nauseous and his chest pain began to radiate down his left arm and into his jaw. This prompted his visit to the ED for further evaluation. Patient described his pain as pressure and tightness. He confirmed that he was scheduled for a heart cath but he decided to leave AMA. He denies any fever, coughing or any ETOH use. Patient has a SHx of smoking cigarettes. During exam, pt displayed discomfort and stated that he is in pain now but did not appear to be in distress. Onset (ago): hour(s) Consistency: constant Severity: moderate Allergies/Adverse Reactions: Allergies Allergy/AdvReac Type Severity Reaction Status Date / Time No Known Allergies Allergy Verified 10/10/16 04:52 Home Medications: Home Medications Medication Instructions Recorded Confirmed Type Aspirin Chew Tab 81 mg PO DAILY #30 tablet 10/11/16 Rx Aspirin EC Tab 81 mg PO DAILY #30 tablet 10/11/16 Rx Atorvastatin [Lipitor] 80 mg PO BEDTIME #30 tablet 10/11/16 Rx Gabapentin Cap/Tab [Neurontin 100 mg PO TID #30 capsule 10/11/16 Rx Cap/Tab] Isosorbide Mononitrate [Imdur] 30 mg PO DAILY #30 tablet 10/11/16 Rx Metoprolol Tartrate Tab [Lopressor 50 mg PO BID #60 tablet 10/11/16 Rx Tab] traMADol TAB [Ultram] 50 mg PO BID #50 tablet 10/11/16 Rx Review of System - Review of System 12 point system: reviewed and no additional remarkable complaints except as stated - Review of System Constitutional: Present: as per HPI, diaphoresis. Absent: fever Eyes: Absent: discharge Head/Ears/Nose/Throat: Absent: earache Respiratory: Absent: cough Cardiovascular: Present: as per HPI, chest pain Gastrointestinal: Present: as per HPI, nausea. Absent: abdominal pain, vomiting , diarrhea Genitourinary male: Absent: urgency, dysuria Musculoskeletal: Present: as per HPI, arm pain, neck pain. Absent: back pain, leg pain Skin: Absent: rash, lesions Neurological: Absent: headache, weakness Medical,Surgical,& Family Hx - Medical History Musculoskeletal: History of: Back/Neck Problems - Surgical History Orthopedic Surgeries: Surgical HX of;: Spinal Surgery (fusion lumbar) - Social History Smoking Status: Current every day smoker Exam Vital Signs: Vital Signs Temperature 96.9 F L 09/14/16 04:00 Pulse Rate 76 09/14/16 10:00 Respiratory Rate 18 09/14/16 10:00 Blood Pressure 154/83 09/14/16 07:00 O2 Sat by Pulse Oximetry 97 09/14/16 07:00 - General General appearance: alert, in no apparent distress - Head Head exam: Present: atraumatic, normocephalic - Eye Eye exam: Present: normal appearance, PERRL, EOMI - ENT ENT exam: Present: normal oropharynx, mucous membranes moist, TM's normal bilaterally, normal external ear exam - Neck Neck exam: Present: full ROM, trachea midline. Absent: tenderness - Chest Chest inspection: Present: symmetric chest wall rise. Absent: tenderness - Respiratory Respiratory exam: Present: other (patient displayed obvious signs of SOB) - Cardiovascular Cardiovascular exam: Present: regular rate, normal rhythm, normal heart sounds. Absent: murmur - Abdominal Exam Abdominal exam: Present: soft, normal bowel sounds. Absent: distention - Extremities Exam Extremities exam: Present: full ROM. Absent: tenderness - Back Exam Back exam: Present: full ROM. Absent: tenderness - Neurological Exam Neurological exam: Present: alert, oriented X3, CN II-XII intact. Absent: motor sensory deficit - Skin Skin exam: Present: diaphoresis Course Course Narrative: Patient evaluated by the clinical dietetic technician nurse practitioner in the ED she feels the same as I do that he needs to be taken to the [facility]. Dr. Walters will take patient to the [facility] for evaluation of coronary arteries. Patient's enzymes are still pending. Patient's pain was relieved somewhat with a sublingual nitroglycerin in the ED. Results - Labs CBC & BMP: 09/14/16 02:15 09/14/16 02:15 Lab Results: I have reviewed the patients labs Labs: Laboratory Tests 09/11/16 11:26 WBC 9.3 RBC 5.10 Hgb 15.7 Hct 45.2 Plt Count 329 MPV 9.0 L Lymph % (Auto) 20.5 L - EKG EKG results: interpreted by ERMD, sinus rhythm (Nonspecific ST-T changes) - Diagnostic Findings Procedure: Chest x-ray: report reviewed by me (Mild patchy opacificatipon within the upper/lateral right lung suspicious for early consolidative process such as pneumonia. ) Disposition Clinical Impression: Unstable angina pectoris Case discussed with: patient Disposition: Still a Patient Condition: Stable
== END 2016-09-14 10:25 | disposition home or self-care (01) | DRG 287 ==
LOC: N.ED 10:51 → N.CL 11:58 → N.CC 13:35
PROVIDERS: ADMIT Internal Medicine Interventional Cardiology; ATTEND Internal Medicine Interventional Cardiology
PROC: CLCCHCL (ICD-10-PCS; 2016-09-11 12:45)

== ENCOUNTER 2016-10-10 04:44 | Observation (INO) ==
[2016-10-10] MEDS ORDERED: NITROGLYCERIN 2% OINT 1 INCH/GM PACK TOP STA (05:03)
[2016-10-10] MEDS ORDERED: ENOXAPARIN 100 MG/ML SYRINGE SUBCUT STA (05:03)
[2016-10-10] MEDS ORDERED: ONDANSETRON 4 MG/2 ML VIAL IV STA (05:03)
[2016-10-10] MEDS ORDERED: SODIUM CHLORIDE 0.9% 1,000 ML IV STA (05:03)
[2016-10-10] MEDS ORDERED: ASPIRIN 325 MG TABLET PO STA (05:03)
[2016-10-10] MEDS ORDERED: MORPHINE 2 MG/1 ML SYRINGE IV STA (05:03)
--- NOTE | 2016-10-10 05:14 | Emergency Department Note ---
Karl Horvath Gwan, am scribing for, and in the presence of, Ghulam Roberto MD 05:11. Pardeep Horvath Robert M, MD, personally performed the services described in this documentation, ascribed by Sobia Barajas in my presence, and it is both accurate and complete 513 . Arrival - Arrival Chief Complaint: Abdominal / Flank Pain Stated Complaint: ask pt ED Nursing Triage Note: Pt to triage with c/o pain that starts in the abdomen and radiates through out his body. Pt states he had surgery about 3 weeks ago, pt states he had a heart cath done. Mode of Arrival: Wheelchair Limitations: No Limitations Source: Patient, Family, Old Records Reviewed, RN Notes Reviewed Time Seen by Provider: 10/10/16 04:55 - History of Present Illness HPI Narrative: Patient is a 56 y/o white male who presents to the ED with a c/o chest discomfort and nausea with an onset this morning. Patient stated that his discomfort has an onset this morning, that it is located in the center of his chest and that it woke him from sleep. He continued to note that he feels as if he "can't breathe" and that his discomfort radiates into his back. This prompted his visit to the ED for further evaluations. Patient confirmed that he had a heart cath performed 3 weeks ago and was given instruction to have regular f/u with Bariatric Nurse. Patient has a SHx of less than .5 ppd cigarette smoke but denies any ETOH use. During exam, pt displayed obvious signs of anxiety to include hyperventilation. No other problems/complaints reported in ED. Onset (ago): hour(s) Consistency: constant Severity: moderate Allergies/Adverse Reactions: Allergies Allergy/AdvReac Type Severity Reaction Status Date / Time No Known Allergies Allergy Verified 10/10/16 04:52 Home Medications: Home Medications Medication Instructions Recorded Confirmed Type Aspirin EC Tab 81 mg PO DAILY #30 tablet 09/12/16 Rx Atorvastatin [Lipitor] 80 mg PO BEDTIME #30 tablet 09/12/16 Rx Levofloxacin Tab [Levaquin Tab] 500 mg PO Q24H #5 tablet 09/12/16 Rx Metoprolol Tartrate Tab [Lopressor 50 mg PO BID #60 tablet 09/12/16 Rx Tab] Pantoprazole Tab [Protonix Tab] 40 mg PO DAILY #30 tablet 09/12/16 Rx Review of System - Review of System 12 point system: reviewed and no additional remarkable complaints except as stated - Review of System Constitutional: Absent: chills, fever Eyes: Absent: discharge, pain Head/Ears/Nose/Throat: Absent: earache Respiratory: Present: as per HPI, other (can's breathe ). Absent: cough Cardiovascular: Present: as per HPI, chest pain Gastrointestinal: Present: as per HPI, nausea. Absent: abdominal pain, vomiting , diarrhea Genitourinary male: Absent: urgency, dysuria Musculoskeletal: Absent: arm pain, back pain, leg pain, neck pain Skin: Absent: rash, lesions Neurological: Absent: headache, weakness Medical,Surgical,& Family Hx - Medical History Cardio: No history of: Aneurysm, CAD, Hypertension, [place], Cardiovascular Problems Neurology: No history of: Cerebrovascular Accident, Seizures, TIA Endocrine: No history of: Diabetes Mellitus (IDDM), Diabetes Mellitus (NIDDM), Dyslipidemia Respiratory: No history of: Obstructive Sleep Apnea, Pulmonary Embolism, Lung Cancer Gastrointestinal: No history of: Gastrointestinal Bleed, Liver Problems, Gastrointestinal Cancer, GI Problems Musculoskeletal: History of: Back/Neck Problems Hematology: No history of: Anemia, Bleeding Problems - Surgical History Orthopedic Surgeries: Surgical HX of;: Spinal Surgery (fusion lumbar) - Social History Smoking Status: Current every day smoker Frequency of Alcohol Use: None Type of Drug Use: None Exam Vital Signs: Vital Signs Temperature 97.2 F L 10/10/16 04:46 Pulse Rate 77 10/10/16 05:23 Respiratory Rate 22 10/10/16 05:23 Blood Pressure 152/104 10/10/16 05:23 O2 Sat by Pulse Oximetry 100 10/10/16 05:24 - General General appearance: alert, in no apparent distress, anxious, other (during exam , pt was hyperventilating ) - Head Head exam: Present: atraumatic, normocephalic - Eye Eye exam: Present: normal appearance, PERRL, EOMI - ENT ENT exam: Present: normal oropharynx, mucous membranes moist, TM's normal bilaterally, normal external ear exam - Neck Neck exam: Present: full ROM, trachea midline. Absent: tenderness - Chest Chest inspection: Present: symmetric chest wall rise. Absent: tenderness - Respiratory Respiratory exam: Present: normal lung sounds bilaterally. Absent: respiratory distress - Cardiovascular Cardiovascular exam: Present: regular rate, normal rhythm, normal heart sounds. Absent: murmur - Abdominal Exam Abdominal exam: Present: soft, distention, normal bowel sounds. Absent: tenderness, guarding - Extremities Exam Extremities exam: Present: full ROM. Absent: tenderness - Back Exam Back exam: Present: full ROM. Absent: tenderness - Psychiatric Psychiatric exam: Present: normal affect, normal mood - Skin Skin exam: Present: warm, dry, intact, normal color Course - Consultations Consultation #1: Dr. Ubaldo Jimenez was notified and will have the hospitalist service admit the patient. Time: 05:55 Results - Labs CBC & BMP: 10/10/16 05:05 10/10/16 05:05 Lab Results: I have reviewed the patients labs Labs: Lab Results WBC 9.7 T/CUMM (4-12) 10/10/16 05:05 RBC 4.76 MC/CUMM (3.8-5.5) 10/10/16 05:05 Hgb 14.8 GM/DL (14.0-18.0) 10/10/16 05:05 Hct 41.9 VOL% (42.0-52.0) L 10/10/16 05:05 MCV 88.0 FL (87-102) 10/10/16 05:05 MCH 31 PG (27-34) 10/10/16 05:05 MCHC 35.3 GM/DL (32-36) 10/10/16 05:05 RDW 13.0 % (9.3-17.3) 10/10/16 05:05 Plt Count 296 T/CUMM (130-400) 10/10/16 05:05 MPV 8.7 FL (9.6-12.0) L 10/10/16 05:05 Neut % (Auto) 37.6 % (38.7-73.9) L 10/10/16 05:05 Lymph % (Auto) 50.1 % (21.2-54.2) 10/10/16 05:05 [place] % (Auto) 8.1 % (1.7-12.7) 10/10/16 05:05 Eos % (Auto) 3.2 % (0.00-10.9) 10/10/16 05:05 Baso % (Auto) 0.9 % (0.0-0.8) H 10/10/16 05:05 Neut # (Auto) 3.6 10*3/uL (1.4-7.4) 10/10/16 05:05 Lymph # (Auto) 4.9 10*3/uL (1.4-4.0) H 10/10/16 05:05 [place] # (Auto) 0.8 10*3/uL (0.11-0.8) 10/10/16 05:05 Eos # (Auto) 0.3 10*3/uL (0.0-0.87) 10/10/16 05:05 Baso # (Auto) 0.1 10*3/uL (0.0-0.2) 10/10/16 05:05 Total Counted 100 10/10/16 05:05 Immature Gran % 0.1 % 10/10/16 05:05 Nucleated RBC % 0.0 /100WBC 10/10/16 05:05 Immature Gran # 0.01 # 10/10/16 05:05 Segmented Neutrophils 26 % (50-85) L 10/10/16 05:05 Lymphocytes 60 % (20-55) H 10/10/16 05:05 Monocytes 10 % (2-15) 10/10/16 05:05 Eosinophils 4 % (0-10) 10/10/16 05:05 Nucleated RBCs # 0.00 10*3/uL 10/10/16 05:05 Platelet Estimate Adequate 10/10/16 05:05 Hypochromasia 1+ 10/10/16 05:05 Morphology Comment 10/10/16 05:05 INR 1.0 10/10/16 05:05 PT Patient/Control Mix 10.5 SECS 10/10/16 05:05 Sodium 141 MMOL/L (136-145) 10/10/16 05:05 Potassium 3.6 MMOL/L (3.5-5.1) 10/10/16 05:05 Chloride 107 MMOL/L (98-107) 10/10/16 05:05 Carbon Dioxide 27 MMOL/L (21-32) 10/10/16 05:05 Anion Gap 10.6 MMOL/L (5.0-15.0) 10/10/16 05:05 BUN 20 MG/DL (7-18) H 10/10/16 05:05 Creatinine 1.00 MG/DL (0.70-1.30) 10/10/16 05:05 GFR Calculation 86 ML/MIN 10/10/16 05:05 BUN/Creatinine Ratio 20.00 RATIO (6.00-20.00) 10/10/16 05:05 Glucose 101 MG/DL (74-106) 10/10/16 05:05 Calculated Osmolality 283.3 MOS/KG (273-304) 10/10/16 05:05 Calcium 9.4 MG/DL (8.5-10.1) 10/10/16 05:05 Total Bilirubin < 0.39 MG/DL (0.2-1.0) 10/10/16 05:05 AST 25 U/L (0-37) 10/10/16 05:05 ALT 25 U/L (16-61) 10/10/16 05:05 Alkaline Phosphatase 82 U/L (45-117) 10/10/16 05:05 Troponin I < 0.015 NG/ML (0.00-0.045) 10/10/16 05:05 B-Natriuretic Peptide 10 PG/ML (2-100) 10/10/16 05:05 Total Protein 6.7 G/DL (6.4-8.3) 10/10/16 05:05 Albumin 3.9 G/DL (3.4-5.0) 10/10/16 05:05 Globulin 2.8 G/DL (2.3-3.5) 10/10/16 05:05 Albumin/Globulin Ratio 1.3 RATIO (1.1-2.2) 10/10/16 05:05 - EKG EKG results: interpreted by ERMD, WNL, sinus rhythm - Diagnostic Findings Procedure: Chest x-ray: report reviewed by me (No acute process) Disposition Clinical Impression: Acute chest pain, Uncontrolled hypertension, COPD (chronic obstructive pulmonary disease), Tobacco abuse Case discussed with: patient, patient's family Disposition: Still a Patient Condition: Stable
[2016-10-10 05:17] LABS: Basophils # 0.1 10*3/uL (0.0-0.2); Basophils % 0.9 % (0.0-0.8); Eosinophils # 0.3 10*3/uL (0.0-0.87); Eosinophils % 3.2 % (0.00-10.9); Hematocrit 41.9 VOL% (42.0-52.0); Hemoglobin 14.8 GM/DL (14.0-18.0); Immature Granulocytes % 0.1 %; Immature Granulocytes Absolute 0.01 #; Lymphocytes # 4.9 10*3/uL (1.4-4.0); Lymphocytes % 50.1 % (21.2-54.2); Mean Corpuscular HGB Conc 35.3 GM/DL (32-36); Mean Corpuscular Hemoglobin 31 PG (27-34); Mean Platelet Volume 8.7 FL (9.6-12.0); Monocytes # 0.8 10*3/uL (0.11-0.8); Monocytes % 8.1 % (1.7-12.7); Neutrophils # 3.6 10*3/uL (1.4-7.4); Neutrophils % 37.6 % (38.7-73.9); Platelet Count 296 T/CUMM (130-400); Red Blood Count 4.76 MC/CUMM (3.8-5.5); White Blood Count 9.7 T/CUMM (4-12)
[2016-10-10] MEDS ORDERED: NITROGLYCERIN 2% OINT 1 INCH/GM PACK TOP ONE (05:17)
[2016-10-10] MEDS ORDERED: MORPHINE 2 MG/1 ML SYRINGE ONE (05:17)
[2016-10-10] MEDS ORDERED: ONDANSETRON 4 MG/2 ML VIAL ONE (05:17)
[2016-10-10] MEDS ORDERED: ENOXAPARIN 60 MG/0.6 ML SYRINGE ONE (05:17)
[2016-10-10] MEDS ORDERED: ASPIRIN 325 MG TABLET ONE (05:17)
[2016-10-10] MEDS ORDERED: HYDROmorphone 2 MG/1 ML VIAL IV STA (05:28)
[2016-10-10 05:29] LABS: PT Patient Result 10.5 SECS
[2016-10-10] MEDS ORDERED: HYDROmorphone 2 MG/1 ML VIAL ONE (05:31)
[2016-10-10] MEDS ORDERED: ALUM/MAG/SIMETH/LIDO VISC 1:1 30 ML BOTTLE PO STA (05:34)
[2016-10-10 05:42] LABS: Eosinophils 4 % (0-10); Hypochromasia 1+; Lymphocytes 60 % (20-55); Platelet Estimate Adequate; Segmented Neutrophils 26 % (50-85); Total Cells Counted 100
[2016-10-10 05:48] LABS: Alanine Aminotransferase 25 U/L (16-61); Albumin 3.9 G/DL (3.4-5.0); Alkaline Phosphatase 82 U/L (45-117); Aspartate Amino Transferase 25 U/L (0-37); Bilirubin,Total < 0.39 MG/DL (0.2-1.0); Blood Urea Nitrogen 20 MG/DL (7-18); Calcium 9.4 MG/DL (8.5-10.1); Glucose 101 MG/DL (74-106); Osmolality,Calculated 283.3 MOS/KG (273-304); Potassium 3.6 MMOL/L (3.5-5.1); Sodium 141 MMOL/L (136-145); Total Protein 6.7 G/DL (6.4-8.3)
[2016-10-10] MEDS ORDERED: ALUM/MAG/SIMETH/LIDO VISC 1:1 30 ML BOTTLE PO ONE (05:54)
[2016-10-10 05:58] LABS: Magnesium 2.1 MG/DL (1.8-2.4)
--- NOTE | 2016-10-10 05:59 | XRay Report ---
XR chest 1V portable Indication: Chest pain. Comparison: Chest x-ray 09/12/2016 Technique: Portable AP chest was performed. Findings: Heart size is normal. Pulmonary vasculature appears within normal limits. No significant abnormality of the mediastinal contours demonstrated. Lungs are clear. Bones and soft tissues demonstrate no significant abnormalities. Impression: 1. No evidence of acute pathology. 10/10/2016 5:56 AM PROCEDURE INTERPRETED AT [facility] DEPARTMENT OF RADIOLOGY Final Report Signed by: Dr. David Roberto
--- NOTE | 2016-10-10 06:10 | Hospitalist History & Physical ---
Assessment and Plan (1) Medical non-compliance Status: Acute Current Visit: Yes (2) Coronary artery disease Status: Acute Current Visit: Yes (3) Hypertension Status: Acute Current Visit: Yes (4) Acute chest pain Status: Acute Current Visit: Yes (5) Tobacco abuse Status: Chronic Assessment and plan: Patient will be admitted to our service. Will repeat cardiac enzymes in 6 hours. Consult cardiology. He has CT scan of his chest. The results of it were negative for PE. No clear cause of pain in this patient. Place the patient on medicines which she should be taking. Current Visit: Yes History of Present Illness Chief complaint: Chest pain shortness of breath History of present illness: Mr. Haider is a 56 year old male with past medical history of moderate coronary artery disease who presents to our hospital this morning. He reports that he had a recent heart cath approximately 4 weeks ago. He was supposed to be medically treated for his coronary artery disease. He was not compliant with his medications and did not get any of his prescriptions filled. He says he is cannot afford them. This morning he developed chest pain it was intense. It radiated to his back into his neck. He had some diaphoresis and some nausea. He thought he was having a heart attack. I was consulted to admit the patient. Home Medications Medication Instructions Recorded Confirmed Type Aspirin EC Tab 81 mg PO DAILY #30 tablet 09/12/16 Rx Atorvastatin [Lipitor] 80 mg PO BEDTIME #30 tablet 09/12/16 Rx Levofloxacin Tab [Levaquin Tab] 500 mg PO Q24H #5 tablet 09/12/16 Rx Metoprolol Tartrate Tab [Lopressor 50 mg PO BID #60 tablet 09/12/16 Rx Tab] Pantoprazole Tab [Protonix Tab] 40 mg PO DAILY #30 tablet 09/12/16 Rx Allergies Allergy/AdvReac Type Severity Reaction Status Date / Time No Known Allergies Allergy Verified 10/10/16 04:52 Medical,Surgical,& Family Hx - Medical History Cardio: History of: CAD No history of: Aneurysm, Hypertension, [place], Cardiovascular Problems Neurology: No history of: Cerebrovascular Accident, Seizures, TIA Endocrine: No history of: Diabetes Mellitus (IDDM), Diabetes Mellitus (NIDDM), Dyslipidemia Respiratory: No history of: Obstructive Sleep Apnea, Pulmonary Embolism, Lung Cancer Gastrointestinal: No history of: Gastrointestinal Bleed, Liver Problems, Gastrointestinal Cancer, GI Problems Musculoskeletal: History of: Back/Neck Problems Hematology: No history of: Anemia, Bleeding Problems - Surgical History Orthopedic Surgeries: Surgical HX of;: Spinal Surgery (fusion lumbar) - Family History Family History: Reports;: Additional Family History (Pulmonary embolus) - Social History Smoking Status: Current every day smoker Frequency of Alcohol Use: None Type of Drug Use: None 12 point system: reviewed and no additional remarkable complaints except as stated Exam - Constitutional Vitals: Period Temp Pulse Resp BP Sys/Jaffe Pulse Ox Last 24 Hr 97.2 F-97.2 F 77-84 16-22 121-152/93-104 99-100 General appearance: normal weight - Head Head exam: Present: normal inspection - Eye Eye exam: Present: EOMI Pupils: Present: MELANY - ENT ENT exam: Present: normal exam - Neck Neck exam: Present: normal inspection - Respiratory Respiratory exam: Present: clear to auscultation bilaterally - Cardiovascular Cardiovascular exam: Present: regular rate and rhythm - GI/Abdominal GI/Abdominal exam: Present: normal bowel sounds - Extremities Exam Extremities exam: Present: normal inspection - Back Exam Back exam: Present: normal inspection - Neurological Exam Neurological exam: Present: alert, oriented X3 - Psychiatric Psychiatric exam: Present: normal affect - Skin Skin exam: Present: normal color Results - Labs CBC & BMP: 10/10/16 05:05 10/10/16 05:05
[2016-10-10] MEDS ORDERED: ONDANSETRON 4 MG/2 ML VIAL IV PRN (06:15)
[2016-10-10] MEDS ORDERED: MORPHINE 2 MG/1 ML SYRINGE IV PRN (06:15)
--- NOTE | 2016-10-10 06:23 | CT Report ---
CT chest PE study Indication: Chest pain. Hypoxia. Comparison: None. Technique: CT of the chest was performed following the administration of intravenous contrast. In addition to multiple contiguous axial source images obtained from the thoracic inlet through the upper abdomen, coronal and sagittal MPR series were performed as were thin slab MIP reconstructions in the coronal and sagittal plane. The CT examination was performed using one or more of the following dose reduction techniques: Automatic exposure control, adjustment of the mA and kV according to patient size, or iterative reconstruction techniques. Findings: Lungs: Increased attenuation within the lung apices more prevalent on the left is favored to reflect scarring. Moderate centrilobular and paraseptal emphysematous changes are noted bilaterally. Lungs are blurred by motion. Mild dependent atelectatic changes are noted bilaterally within the dependent lung parenchyma. No pleural effusion or endobronchial lesion is demonstrated. Aorta: No significant abnormality of the aorta is demonstrated. Pulmonary artery: Pulmonary artery is normal in size and demonstrates no significant abnormality. Lymph nodes: No adenopathy is noted within the axilla, aleksey, or mediastinum. Heart: Heart is normal in size. Coronary artery calcifications are present within the left coronary circulation. Esophagus: Esophagus demonstrates no significant abnormality. Osseous structures: Osseous structures of the thoracic spine, imaged rib cage, and imaged shoulder girdles demonstrate no significant abnormality. Soft tissues and muscular: Soft tissues and musculature of the chest wall as well as imaged lower neck demonstrate no acute findings. Upper abdomen: No acute findings are noted within the upper abdomen. Impression: 1. No evidence of pulmonary artery embolus. 2. Moderately advanced bilateral centrilobular and paraseptal emphysematous changes are noted. 3. Coronary artery calcifications are present. 10/10/2016 6:16 AM PROCEDURE INTERPRETED AT [facility] DEPARTMENT OF RADIOLOGY Final Report Signed by: Dr. David Roberto
[2016-10-10] MEDS ORDERED: MORPHINE 2 MG/1 ML SYRINGE IV ONE (07:36)
--- NOTE | 2016-10-10 08:19 | EKG Report ---
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
[2016-10-10 08:25] LABS: Troponin I Only < 0.015 NG/ML (0.00-0.045)
--- NOTE | 2016-10-10 08:27 | Cardiology Consult Note ---
Assessment and Plan - Time spent with patient Time spent with patient: Greater than 30 minutes (due to assessment, plan, and documentation) Time spent discussing smoking cessation with patient: 3 to 10 minutes (1) Acute chest pain Status: Acute Assessment and plan: See plan of care listed below. Current Visit: Yes (2) Coronary artery disease Status: Chronic Assessment and plan: See plan of care listed below. Current Visit: Yes (3) Tobacco abuse Status: Chronic Assessment and plan: See plan of care listed below. Current Visit: Yes (4) Medical non-compliance Status: Chronic Assessment and plan: See plan of care listed below. 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 Walters Mr. Haider is a 56 year old male who has only recently started being followed by cardiology. Risk factors include: heavy tobaccoism. He arrived to the emergency room this morning after waking up around [id number] this morning with unrelenting midsternal chest discomfort which radiated into his left jaw. He had associated diaphoresis and shortness of breath. He rates his pain as severe and worsening until he decided he should be further evaluated in the ER. It is not reproducible with movement, palpation, or deep breath. It occurs with exertion and rest. He is unable to describe this pain for me other than stating it feels as if it goes straight through his chest to his back. Mr. Haider was recently seen in the hospital in early September 2016 for very similar symptoms and underwent left heart catheterization which revealed moderate disease of the mid right and mid circumflex with significant disease of his mid to distal PDA which was noted to be a very small vessel. This was not felt to be causing any acute event. His cardiac biomarkers remained normal although he was noted to have some possible hyperacute T waves. 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 Echocardiogram on 09/11/16 revealed EF 55-60%, mild LVH, trace MR, mild aortic sclerosis without stenosis or regurgitation. Upon discharge, Mr. Haider did not fill his medications and reports "he could not afford them." After numerous attempts by the clinic to contact the patient, he was given an appointment on which he did not show up for. Upon arrival, his EKG is unremarkable and initial cardiac biomarkers are negative. Creatinine is 1.1, WBC is normal with stable H&H. Potassium 3.9, magnesium 2.1. Urinalysis is unremarkable. He was taken for CT of the chest which showed no evidence of PE, moderately advanced bilateral centrilobular and paraseptal emphysematous changes, no pleural effusion. Since admission, he has been loaded with Lovenox 60mg S.C. and aspirin. He has also been given a total of 4mg morphine, 1mg dilaudid, nitropaste, and GI cocktail for pain. He reports his pain is "a little better but it still hurts like hell." Will hold patient NPO and further discuss with Dr. Metz risks vs. benefits of repeat catheterization vs. medical management. Dr. Metz is currently scrubbed in with STEMI, will discuss when procedure is complete. ASSESSMENT/PLAN: 1. ANGINA - Patient presents reporting symptoms typical of angina. 2. MODERATE CAD - Patient underwent left heart catheterization on 09/11/16 which revealed moderate disease of the mid right and mid circumflex with significant disease of his mid to distal PDA which was noted to be a very small vessel. 3. TOBACCO ABUSE - Patient reports he is down to less than 1/2 PPD and tells me that 1 pack will last him approximately 5 days; however, after conferring care with Dr. Telles, he informed Dr. Telles that he is down to 1PPD from 2 PPD. He tells me he is working towards a goal of cessation. We spent greater than 5 minutes discussing the risks of continuing to smoke and the benefits of total cessation. 4. MEDICAL NONCOMPLIANCE - Mr. Haider has shown noncompliant behavior since initially reporting to the hospital. If it is elected to take him back to the labor trainer for possible PCI, bare metal stent placement may be an appropriate option for this patient. I stressed the importance of taking his medications, especially following possible PCI and the life threatening consequences he may face if he is noncompliant with medical therapy. CC: Ubaldo Jimenez MD - Home Medications and Allergies Home Medications: Home Medications Medication Instructions Recorded Confirmed Type No Known Home Medications [No 10/10/16 10/10/16 History Known Home Medications] Allergies/Adverse Reactions: Allergies Allergy/AdvReac Type Severity Reaction Status Date / Time No Known Allergies Allergy Verified 10/10/16 04:52 Review of systems: - Constitutional: Present: As per HPI. Absent: anorexia, chills, daytime sleepiness, excessive sweating, fever(s), frequent falls, headache(s), increased appetite, lethargy, malaise, night sweats, stops breathing during sleep, weakness, weight gain, weight loss, fatigue. - EENT Eyes: Present: As per HPI. Absent: blurry vision, diplopia, loss of vision Ears: Present: As per HPI. Absent: decreased hearing, ear discharge, ear pain Nose, mouth and throat: Present: As per HPI. Absent: dysphagia, epistaxis, headache(s), hoarseness, lip swelling, nasal congestion, neck mass, neck pain, sinus pressure, sore throat, throat swelling, tongue swelling, vertigo - Cardiovascular: Present: chest pain at rest, dyspnea, radiating jaw, neck or arm pain, as per HPI. Absent: chest pain with activity, dyspnea on exertion, edema, claudication, diaphoresis, lightheadedness, orthopnea, palpitations, PND - Respiratory: Present:dyspnea, as per HPI. Absent: dyspnea on exertion, cough , hemoptysis, wheezing, snoring, pain on inspiration - Gastrointestinal: Present: As per HPI. Absent: abdominal pain, bloating, change in bowel habits, constipation, diarrhea, heartburn, hematemesis, hematochezia, loose stools, melena, nausea, vomiting - Genitourinary: Present: As per HPI. Absent: difficulty urinating, dysuria, flank pain, hematuria, nocturia, urinary frequency, urinary incontinence - Musculoskeletal: Present: back pain, As per HPI. Absent: arthralgias, joint swelling, limited range of motion, muscle cramps, muscle weakness, myalgias - Neurological: Present: As per HPI. Absent: abnormal gait, abnormal speech, behavioral changes, confusion, convulsions, disequilibrium, dizziness, focal weakness, frequent falls, headache(s), memory loss, numbness, paresthesias, radicular pain, syncope, tremor(s) - Psychiatric: Present: As per HPI. Absent: anxiety, confusion, depression, panic attacks - Endocrine: Present: As per HPI. Absent: cold intolerance, fatigue, heat intolerance, polydipsia, polyphagia - Hematologic/Lymphatic: Present: As per HPI. Absent: easy bleeding, easy bruising, lymphadenopathy Medical,Surgical,& Family Hx - Medical History Cardio: History of: CAD No history of: Aneurysm, Hypertension, [place], Cardiovascular Problems Neurology: No history of: Cerebrovascular Accident, Seizures, TIA Endocrine: No history of: Diabetes Mellitus (IDDM), Diabetes Mellitus (NIDDM), Dyslipidemia Respiratory: No history of: Obstructive Sleep Apnea, Pulmonary Embolism, Lung Cancer Gastrointestinal: No history of: Gastrointestinal Bleed, Liver Problems, Gastrointestinal Cancer, GI Problems Musculoskeletal: History of: Back/Neck Problems Hematology: No history of: Anemia, Bleeding Problems - Surgical History Cardiac Surgeries: Sugical HX of: Cardiac Catheterization Orthopedic Surgeries: Surgical HX of;: Spinal Surgery (fusion lumbar) - Family History Family History: Reports;: Additional Family History (Pulmonary embolus) - Social History Smoking Status: Current every day smoker Frequency of Alcohol Use: None Type of Drug Use: None Marital Status: Lives With:: Sibling Functional capacity: independent ambulation Physical Examination Vital Signs Temp Pulse Resp BP Pulse Ox 97.2 F L 84 16 121/93 99 10/10/16 04:46 10/10/16 04:46 10/10/16 04:46 10/10/16 04:46 10/10/16 04:46 Exam: General appearance: Pleasant and cooperative. Normal weight. Appears slightly disheveled. - Head Head exam: Present: normal inspection, normocephalic, atraumatic. Absent: hematoma, laceration - Eye Eye exam: Present: EOMI. Absent: conjunctival injection, nystagmus, periorbital swelling, scleral icterus, laceration to eyelids Pupils: Present: PERRL. Absent: constricted, dilated, fixed, irregular, unequal - ENT ENT exam: Present: Edentulous of numerous teeth, normal external ear exam - Neck Neck exam: Present: normal inspection. Absent: lymphadenopathy, meningismus, tenderness, thyromegaly - Respiratory Respiratory exam: Present: coarse breath sounds but overall clear to auscultation bilaterally. Absent: accessory muscle use, chest wall tenderness - Cardiovascular Cardiovascular exam: Present: regular rate and rhythm. Absent: carotid bruit, gallop, JVD, rubs, murmur - GI/Abdominal GI/Abdominal exam: Present: normal bowel sounds, soft. Absent: distended, firm , guarding, hernia, mass, tenderness, rebound. - Extremities Exam Extremities exam: Present: normal inspection, normal capillary refill. Upper extremity pulses 2+. Lower extremity pulses 2+. Absent: calf tenderness, edema -Musculoskeletal Exam Musculoskeletal: Present: No Fluid Collection, No Pain, Normal Range of Motion - Back Exam Back exam: Present: normal inspection. Absent: muscle spasm, vertebral tenderness - Neurological Exam Neurological exam: Present: alert, oriented X3, grossly intact without resting or essential tremor - Psychiatric Psychiatric exam: Present: normal affect, normal mood - Skin Skin exam: Present: normal color, warm, dry, intact. Absent: cyanosis, diaphoretic, rash, urticaria Result/EKG - Labs CBC & BMP: 10/10/16 05:05 10/10/16 05:05 Lab Results: I have reviewed the past 24 hour labs Labs: Laboratory Results - last 24 hr 10/10/16 10/10/16 10/10/16 05:05 05:05 05:05 WBC 9.7 RBC 4.76 Hgb 14.8 Hct 41.9 L MCV 88.0 MCH 31 MCHC 35.3 RDW 13.0 Plt Count 296 MPV 8.7 L Neut % (Auto) 37.6 L Lymph % (Auto) 50.1 Marshall % (Auto) 8.1 Eos % (Auto) 3.2 Baso % (Auto) 0.9 H Neut # (Auto) 3.6 Lymph # (Auto) 4.9 H Marshall # (Auto) 0.8 Eos # (Auto) 0.3 Baso # (Auto) 0.1 Total Counted 100 Immature Gran % 0.1 Nucleated RBC % 0.0 Immature Gran # 0.01 Segmented Neutrophils 26 L Lymphocytes 60 H Monocytes 10 Eosinophils 4 Nucleated RBCs # 0.00 Platelet Estimate Adequate Hypochromasia 1+ Morphology Comment INR PT Patient/Control Mix Sodium 141 Potassium 3.6 Chloride 107 Carbon Dioxide 27 Anion Gap 10.6 BUN 20 H Creatinine 1.00 GFR Calculation 86 BUN/Creatinine Ratio 20.00 Glucose 101 Calculated Osmolality 283.3 Calcium 9.4 Magnesium Total Bilirubin < 0.39 AST 25 ALT 25 Alkaline Phosphatase 82 Troponin I < 0.015 B-Natriuretic Peptide Total Protein 6.7 Albumin 3.9 Globulin 2.8 Albumin/Globulin Ratio 1.3 Lipase 10/10/16 10/10/16 10/10/16 05:05 05:05 05:05 WBC RBC Hgb Hct MCV MCH MCHC RDW Plt Count MPV Neut % (Auto) Lymph % (Auto) Marshall % (Auto) Eos % (Auto) Baso % (Auto) Neut # (Auto) Lymph # (Auto) Marshall # (Auto) Eos # (Auto) Baso # (Auto) Total Counted Immature Gran % Nucleated RBC % Immature Gran # Segmented Neutrophils Lymphocytes Monocytes Eosinophils Nucleated RBCs # Platelet Estimate Hypochromasia Morphology Comment INR 1.0 PT Patient/Control Mix 10.5 Sodium Potassium Chloride Carbon Dioxide Anion Gap BUN Creatinine GFR Calculation BUN/Creatinine Ratio Glucose Calculated Osmolality Calcium Magnesium 2.1 Total Bilirubin AST ALT Alkaline Phosphatase Troponin I B-Natriuretic Peptide 10 Total Protein Albumin Globulin Albumin/Globulin Ratio Lipase 280.0 - EKG EKG results: interpreted by me, sinus rhythm
[2016-10-10] MEDS: METOPROLOL TARTRATE 50 MG TABLET PO SCH ×2 (08:33→21:09)
[2016-10-10] MEDS: PANTOPRAZOLE 40 MG TABLET PO SCH (08:33)
--- NOTE | 2016-10-10 08:36 | EKG Report ---
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
[2016-10-10] MEDS: ASPIRIN EC 81 MG TABLET PO SCH (08:38)
[2016-10-10] MEDS: ISOSORBIDE MONONITRATE 30 MG TABLET PO SCH (08:38)
[2016-10-10] MEDS ORDERED: NITROGLYCERIN SL 0.4 MG TABLET SL PRN (08:57)
--- NOTE | 2016-10-10 10:47 | EKG Report ---
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
[2016-10-10] MEDS: traMADol 50 MG TABLET PO SCH ×2 (10:50→21:08)
[2016-10-10] MEDS: ACETAMINOPHEN 325 MG TABLET PO SCH ×2 (10:51→21:09)
[2016-10-10] MEDS ORDERED: NITROGLYCERIN 2% OINT 1 INCH/GM PACK TOP SCH (12:00)
[2016-10-10 13:22] LABS: Apearance,Urine CLEAR (Clear); Bilirubin,Urine Negative (Negative); Blood, Urine Small mg/dL (Negative); Glucose,Urine (UA) Negative (Negative); Ketones,Urine Negative (Negative); Mucus,Urine Occasional /LPF (Occasional); Nitrite,Urine Negative (Negative); Protein,Urine Negative; RBC,Urine 18 /HPF (0-4); Urine Color Yellow (Yellow); Urine Specific Gravity 1.056 (1.001-1.035); WBC,Urine 9 /HPF (0-6)
[2016-10-10 14:14] LABS: Barbiturates Screen,Urine Negative (Negative); Benzodiazepines Screen,Urine Negative (Negative); Cannabinoid Screen,Urine Negative (Negative); Opiate Screen,Urine Positive (Negative); Phencyclidine Screen,Urine Negative (Negative)
[2016-10-10 15:13] LABS: Troponin I Only < 0.015 NG/ML (0.00-0.045)
--- NOTE | 2016-10-10 15:26 | Event Note ---
Patient was admitted earlier today and when she got to the floor had more chest pain his initial EKG was unremarkable. He has been evaluated by cardiology and his last cardiac cath that was done less than a month ago showed diffuse disease at that study. On further interview with the patient he admits that he has not taken his medicines as prescribed from his last hospitalization. He further admits that he smokes about a pack of cigarettes a day. Moreover patient has had a urine drug screen that was positive for methamphetamines. At this time continuing with medical management. He is hemodynamically stable. Cardiovascular regular rate. Lungs are clear to auscultation. Abdomen is soft. Labs noted.
--- NOTE | 2016-10-10 17:08 | Hospitalist Progress Note ---
Assessment and Plan (1) Chest pain Problem details: Episode described as similar to chest pain previously experienced when angina was diagnosed. No acute NM by repeat EKG. repeat cardiac enzymes and EKG and continue telemetry monitoring. 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 He reports history of left heart catheterization 1 month ago. By patient's report medical management only was recommended. Patient admits that he did not fill any prescriptions and has not taken any other recommended medications. He states that his chest pain that prompted this admission felt similar to chest pain experienced during previous angina episodes. Exam - Constitutional Vitals: Period Temp Pulse Resp BP Sys/Jaffe Pulse Ox Last 24 Hr 97.2 F-97.8 F 56-84 16-22 114-152/66-104 93-100 General appearance: normal weight - Head Head exam: Present: normal inspection, normocephalic, atraumatic - Eye Eye exam: Present: EOMI Pupils: Present: MELANY - ENT ENT exam: Present: other (Several teeth are missing) - Neck Neck exam: Present: normal inspection. Absent: meningismus - Respiratory Respiratory exam: Present: clear to auscultation bilaterally. Absent: accessory muscle use, chest wall tenderness, rales, wheezes - Cardiovascular Cardiovascular exam: Present: regular rate and rhythm - GI/Abdominal GI/Abdominal exam: Present: normal bowel sounds, soft - Extremities Exam Extremities exam: Present: normal inspection. Absent: calf tenderness, edema - Back Exam Back exam: Present: normal inspection - Neurological Exam Neurological exam: Present: alert, oriented X3 - Psychiatric Psychiatric exam: Present: normal affect, normal mood - Skin Skin exam: Present: normal color, warm, dry. Absent: rash Results - Labs CBC & BMP: 10/10/16 05:05 10/10/16 05:05
[2016-10-10] MEDS: GABAPENTIN 100 MG CAPSULE PO SCH ×2 (17:16→21:09)
[2016-10-10] MEDS ORDERED: ATORVASTATIN 40 MG TABLET PO SCH (21:00)
[2016-10-11 02:42] LABS: Basophils # 0.1 10*3/uL (0.0-0.2); Basophils % 0.7 % (0.0-0.8); Eosinophils # 0.3 10*3/uL (0.0-0.87); Eosinophils % 3.3 % (0.00-10.9); Hematocrit 39.9 VOL% (42.0-52.0); Hemoglobin 13.6 GM/DL (14.0-18.0); Immature Granulocytes % 0.2 %; Immature Granulocytes Absolute 0.02 #; Lymphocytes # 3.1 10*3/uL (1.4-4.0); Lymphocytes % 37.1 % (21.2-54.2); Mean Corpuscular HGB Conc 34.1 GM/DL (32-36); Mean Corpuscular Hemoglobin 31 PG (27-34); Mean Corpuscular Volume 89.5 FL (87-102); Mean Platelet Volume 9.1 FL (9.6-12.0); Monocytes # 0.8 10*3/uL (0.11-0.8); Monocytes % 9.6 % (1.7-12.7); Neutrophils # 4.2 10*3/uL (1.4-7.4); Neutrophils % 49.1 % (38.7-73.9); Platelet Count 271 T/CUMM (130-400); Red Blood Count 4.46 MC/CUMM (3.8-5.5); Red Cell Distribution Width 13.4 % (9.3-17.3); White Blood Count 8.5 T/CUMM (4-12)
[2016-10-11 03:07] LABS: Calcium 8.1 MG/DL (8.5-10.1); Magnesium 2.2 MG/DL (1.8-2.4); Osmolality,Calculated 285.1 MOS/KG (273-304)
[2016-10-11 03:09] LABS: Bilirubin,Total 0.7 MG/DL (0.2-1.0); Calcium 8.4 MG/DL (8.5-10.1); Osmolality,Calculated 284.1 MOS/KG (273-304); Total Protein 5.3 G/DL (6.4-8.3)
[2016-10-11] MEDS ORDERED: ACETAMINOPHEN 325 MG TABLET PO PRN (03:52)
[2016-10-11] MEDS ORDERED: ENOXAPARIN 40 MG/0.4 ML SYRINGE SUBCUT SCH ×2 (07:00→09:00)
--- NOTE | 2016-10-11 07:12 | EKG Report ---
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
[2016-10-11] MEDS: ASPIRIN EC 81 MG TABLET PO SCH (08:20)
[2016-10-11] MEDS: GABAPENTIN 100 MG CAPSULE PO SCH ×2 (08:20→14:31)
[2016-10-11] MEDS: ACETAMINOPHEN 325 MG TABLET PO SCH (08:20)
[2016-10-11] MEDS: PANTOPRAZOLE 40 MG TABLET PO SCH (08:20)
[2016-10-11] MEDS: ISOSORBIDE MONONITRATE 30 MG TABLET PO SCH (08:20)
[2016-10-11] MEDS: traMADol 50 MG TABLET PO SCH (08:20)
[2016-10-11] MEDS: METOPROLOL TARTRATE 50 MG TABLET PO SCH (08:20)
[2016-10-11 08:32] VITALS: BP 110/64
--- NOTE | 2016-10-11 09:40 | Discharge Summary ---
Hospital Course - Hospital Course Hospital Course: Patient is a 56-year-old male admitted for evaluation of chest pain and increased shortness of breath complaints. Patient completed left heart catheterization 1 month ago. Non-obstructive coronary artery disease was documented. Patient was advised regarding medical management. Patient did not fill any medication prescriptions. He continues to smoke cigarettes. His urine drug screen was positive for methamphetamines at the time of admission. Acute coronary syndrome was ruled out. Patient was again counseled and advised to avoid tobacco and illegal recreational drug use. 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 (5) Hypertension Status: Chronic (6) Non-compliance Status: Chronic Specialty Discharge - Follow Up or Referrals Follow up with: Gisele Duarte NP [Physician] - Discharge Plan - Discharge Data Condition at Discharge: Stable Discharge Diet: heart healthy, low fat, low cholesterol, low salt diet Activity: resume usual activities as tolerated Hygiene: no restrictions Weight Bearing at Discharge: full weight bearing Driving: no restrictions Contact your physician if you experience:: fever over 101, Shortness of breath - Discharge Medications New Aspirin EC Tab 81 mg PO DAILY #30 tablet Gabapentin Cap/Tab [Neurontin Cap/Tab] 100 mg PO TID #30 capsule Isosorbide Mononitrate [Imdur] 30 mg PO DAILY #30 tablet Metoprolol Tartrate Tab [Lopressor Tab] 50 mg PO BID #60 tablet traMADol TAB [Ultram] 50 mg PO BID #50 tablet Aspirin Chew Tab 81 mg PO DAILY #30 tablet Atorvastatin [Lipitor] 80 mg PO BEDTIME #30 tablet - Follow Up or Referral Follow Up: Gisele Duarte NP [Physician] - - Forms/Instructions Additional Discharge Instructions: Avoid alcohol, tobacco, and illegal recreational drug use Exam - Constitutional Vitals: Period Temp Pulse Resp BP Sys/Jaffe Pulse Ox Last 24 Hr 97.5 F-99.0 F 56-61 18-20 110-133/64-84 93-96 General appearance: normal weight - Head Head exam: Present: normal inspection - Eye Eye exam: Present: EOMI Pupils: Present: MELANY - Neck Neck exam: Present: normal inspection, other (No audible bruits). Absent: meningismus - Respiratory Respiratory exam: Present: clear to auscultation bilaterally. Absent: accessory muscle use, chest wall tenderness, rales, wheezes - GI/Abdominal GI/Abdominal exam: Present: normal bowel sounds, soft. Absent: mass, tenderness - Extremities Exam Extremities exam: Present: normal inspection, full ROM. Absent: calf tenderness , edema - Back Exam Back exam: Present: normal inspection - Neurological Exam Neurological exam: Present: alert, oriented X3 - Psychiatric Psychiatric exam: Present: normal affect, normal mood. Absent: agitated, depressed - Skin Skin exam: Present: normal color, warm, dry (Normal blood flow to both feet) Discharge Results Procedures and tests throughout hospitalization: Pending Orders 10/10/16 Urine Culture Routine Labs on day of discharge: Labs from last 24 hours 10/11/16 10/11/16 10/11/16 02:10 02:10 02:10 WBC RBC Hgb Hct MCV MCH MCHC RDW Plt Count MPV Neut % (Auto) Lymph % (Auto) [place] % (Auto) Eos % (Auto) Baso % (Auto) Neut # (Auto) Lymph # (Auto) [place] # (Auto) Eos # (Auto) Baso # (Auto) Immature Gran % Nucleated RBC % Immature Gran # Nucleated RBCs # Sodium 142 142 Potassium 4.0 4.0 Chloride 109 H 109 H Carbon Dioxide 26 27 Anion Gap 11.0 10.0 BUN 21 H 21 H Creatinine 0.90 0.90 GFR Calculation 97 97 BUN/Creatinine Ratio 23.00 H 23.00 H Glucose 89 97 Calculated Osmolality 284.1 285.1 Calcium 8.4 L 8.1 L Magnesium 2.2 Total Bilirubin 0.70 AST 22 ALT 21 Alkaline Phosphatase 76 Total Creatine Kinase CK-MB (CK-2) Troponin I < 0.015 Total Protein 5.3 L Albumin 3.0 L Globulin 2.3 Albumin/Globulin Ratio 1.3 Urine Color Urine Appearance Urine pH Ur Specific [place] Urine Protein Urine Glucose (UA) Urine Ketones Urine Blood Urine Nitrate Urine Bilirubin Urine Urobilinogen Urine Leukocytes Urine RBC Urine WBC Urine Mucus Ur Culture Indicated? Urine Opiates Screen Ur Barbiturates Screen Ur Phencyclidine Scrn U Amphetamine/Methamph U Benzodiazepines Scrn U Cocaine Metab Screen U Cannabinoids Screen 10/11/16 10/10/16 10/10/16 02:10 Unknown 18:07 WBC 8.5 RBC 4.46 Hgb 13.6 L Hct 39.9 L MCV 89.5 MCH 31 MCHC 34.1 RDW 13.4 Plt Count 271 MPV 9.1 L Neut % (Auto) 49.1 Lymph % (Auto) 37.1 [place] % (Auto) 9.6 Eos % (Auto) 3.3 Baso % (Auto) 0.7 Neut # (Auto) 4.2 Lymph # (Auto) 3.1 [place] # (Auto) 0.8 Eos # (Auto) 0.3 Baso # (Auto) 0.1 Immature Gran % 0.2 Nucleated RBC % 0.0 Immature Gran # 0.02 Nucleated RBCs # 0.00 Sodium Potassium Chloride Carbon Dioxide Anion Gap BUN Creatinine GFR Calculation BUN/Creatinine Ratio Glucose Calculated Osmolality Calcium Magnesium Total Bilirubin AST ALT Alkaline Phosphatase Total Creatine Kinase CK-MB (CK-2) Troponin I < 0.015 Total Protein Albumin Globulin Albumin/Globulin Ratio Urine Color Urine Appearance Urine pH Ur Specific [place] Urine Protein Urine Glucose (UA) Urine Ketones Urine Blood Urine Nitrate Urine Bilirubin Urine Urobilinogen Urine Leukocytes Urine RBC Urine WBC Urine Mucus Ur Culture Indicated? Urine Opiates Screen Positive H Ur Barbiturates Screen Negative Ur Phencyclidine Scrn Negative U Amphetamine/Methamph Positive H U Benzodiazepines Scrn Negative U Cocaine Metab Screen Negative U Cannabinoids Screen Negative 10/10/16 10/10/16 14:20 13:11 WBC RBC Hgb Hct MCV MCH MCHC RDW Plt Count MPV Neut % (Auto) Lymph % (Auto) [place] % (Auto) Eos % (Auto) Baso % (Auto) Neut # (Auto) Lymph # (Auto) [place] # (Auto) Eos # (Auto) Baso # (Auto) Immature Gran % Nucleated RBC % Immature Gran # Nucleated RBCs # Sodium Potassium Chloride Carbon Dioxide Anion Gap BUN Creatinine GFR Calculation BUN/Creatinine Ratio Glucose Calculated Osmolality Calcium Magnesium Total Bilirubin AST ALT Alkaline Phosphatase Total Creatine Kinase 68 CK-MB (CK-2) < 1.0 Troponin I < 0.015 Total Protein Albumin Globulin Albumin/Globulin Ratio Urine Color Yellow Urine Appearance Clear Urine pH 6.0 Ur Specific [place] 1.056 H Urine Protein Negative Urine Glucose (UA) Negative Urine Ketones Negative Urine Blood Small Urine Nitrate Negative Urine Bilirubin Negative Urine Urobilinogen 2.0 H Urine Leukocytes Negative Urine RBC 18 Urine WBC 9 Urine Mucus Occasional Ur Culture Indicated? Results to follow Urine Opiates Screen Ur Barbiturates Screen Ur Phencyclidine Scrn U Amphetamine/Methamph U Benzodiazepines Scrn U Cocaine Metab Screen U Cannabinoids Screen Preliminary micro results at discharge 10/10/16 Unknown Urine Culture - Preliminary Urine,Voided No Growth at 24 hours. - Imaging and Cardiology Procedure: CT - chest: image reviewed by me, report reviewed by me (Findings: Increased attenuation within the lung apices more prevalent on the left thought to be consistent with scarring. Moderate centrilobular and paraseptal emphysematous changes noted bilaterally. Mild dependent atelectatic changes bilaterally within the dependent lung parenchyma. No increased pleural effusion or endobronchial lesion demonstrated. Coronary artery calcifications present within the left coronary circulation. Thoracic spine and ribs demonstrate no significant abnormality.) DS: Provider Date of admission: 10/10/16 06:10 Primary care physician: . No PCP Attending physician on admission: Ubaldo Jimenez MD Consults: 10/10/16 06:15 Consult to Physician [CONS] Routine Comment: chest pain and SOB Consulting Provider: Ben Moon When should Consulting Provider be notified: Now 10/10/16 10:31 Consult to Case Mgmt/Social Srvs [CONS] Routine Reason for Case Mgmt/Social Srvs: Discharge Planning Other Consult Comment: pt reports he cant afford his meds Discharging clinician: Ollie Dickson III Expected date of discharge: 10/11/16
--- NOTE | 2016-10-11 19:29 | Cardiology Progress Note ---
Assessment and Plan - Time spent with patient Time spent with patient: Greater than 30 minutes (1) Acute chest pain Status: Acute Assessment and plan: His chest pain may or may not have been his heart. No EKG changes, no enzyme rise Even if it is his heart, he does not take his medicine. He is not failed medical therapy I emphasized to him the importance of taking his medications. I have emphasized to him the importance of stopping smoking and avoid use of drugs He will be discharged to home with follow-up with his PCP Thank you for allowing me to participate in this patient's care (2) COPD (chronic obstructive pulmonary disease) Status: Acute (3) Chest pain Problem details: Episode described as similar to chest pain previously experienced when angina was diagnosed. No acute HI by repeat EKG. repeat cardiac enzymes and EKG and continue telemetry monitoring. Status: Acute (4) Coronary artery disease Status: Chronic (5) Medical non-compliance Status: Chronic (6) Methamphetamine abuse Status: Chronic (7) Non-compliance Status: Chronic (8) Tobacco abuse Status: Chronic Cardiology - PN: Subj Interval history: No chest pain or shortness of breath. Exam (Progress Note) - Constitutional Vitals: Period Temp Pulse Resp BP Sys/Jaffe Pulse Ox Last 24 Hr 97.5 F-99.0 F 58-61 18-20 110-118/64-76 93-95 Exam: HEENT: Pupils equal, reactive to light and accommodation Neck: NoJVD or bruit Lungs clear to auscultation Heart: Regular rhythm rate with normal S1 and S2. Apical S4 Abdomen: No hepatosplenomegaly Spine/extremities: No clubbing, cyanosis, or edema Neuro: Nonfocal Psych: No depression or anxiety Result/EKG - Labs CBC & BMP: 10/11/16 02:10 10/11/16 02:10 Labs: Laboratory Results - last 24 hr 10/11/16 10/11/16 10/11/16 02:10 02:10 02:10 WBC 8.5 RBC 4.46 Hgb 13.6 L Hct 39.9 L MCV 89.5 MCH 31 MCHC 34.1 RDW 13.4 Plt Count 271 MPV 9.1 L Neut % (Auto) 49.1 Lymph % (Auto) 37.1 [place] % (Auto) 9.6 Eos % (Auto) 3.3 Baso % (Auto) 0.7 Neut # (Auto) 4.2 Lymph # (Auto) 3.1 [place] # (Auto) 0.8 Eos # (Auto) 0.3 Baso # (Auto) 0.1 Immature Gran % 0.2 Nucleated RBC % 0.0 Immature Gran # 0.02 Nucleated RBCs # 0.00 Sodium 142 Potassium 4.0 Chloride 109 H Carbon Dioxide 27 Anion Gap 10.0 BUN 21 H Creatinine 0.90 GFR Calculation 97 BUN/Creatinine Ratio 23.00 H Glucose 97 Calculated Osmolality 285.1 Calcium 8.1 L Magnesium 2.2 Total Bilirubin AST ALT Alkaline Phosphatase Troponin I < 0.015 Total Protein Albumin Globulin Albumin/Globulin Ratio 10/11/16 02:10 WBC RBC Hgb Hct MCV MCH MCHC RDW Plt Count MPV Neut % (Auto) Lymph % (Auto) [place] % (Auto) Eos % (Auto) Baso % (Auto) Neut # (Auto) Lymph # (Auto) [place] # (Auto) Eos # (Auto) Baso # (Auto) Immature Gran % Nucleated RBC % Immature Gran # Nucleated RBCs # Sodium 142 Potassium 4.0 Chloride 109 H Carbon Dioxide 26 Anion Gap 11.0 BUN 21 H Creatinine 0.90 GFR Calculation 97 BUN/Creatinine Ratio 23.00 H Glucose 89 Calculated Osmolality 284.1 Calcium 8.4 L Magnesium Total Bilirubin 0.70 AST 22 ALT 21 Alkaline Phosphatase 76 Troponin I Total Protein 5.3 L Albumin 3.0 L Globulin 2.3 Albumin/Globulin Ratio 1.3 Specialty Discharge - Follow Up or Referrals Follow up with: Gisele Duarte NP [Physician] -
== END 2016-10-11 17:35 | disposition home or self-care (01) ==
LOC: N.EDINP 04:44 → N.ED 04:44 → SUATTDRO 06:10 → N.TELES 07:03
PROVIDERS: ADMIT Internal Medicine; ATTEND Internal Medicine